=== PATIENT | female | born 1990 | race American Indian/Alaskan Native ===

== ENCOUNTER 2016-12-16 08:20 | Emergency (ER) | payer MEDICAID ==
[2016-12-16] MEDS ORDERED: ZOFRAN ODT PO ONE (08:39)
[2016-12-16 09:00] LABS: Bacteria,Urine 1+ /HPF (Negative); Bilirubin,Urine NEG (Negative); Blood,Urine NEG (Negative); Ketones,Urine 80 mg/dL (Negative); Leukocyte Esterase,Urine SM (Negative); Mucus,Urine 3+ /HPF; Nitrite,Urine NEG (Negative); Urobilinogen,Urine < 2.0 mg/dL (<2.0)
[2016-12-16] MEDS ORDERED: LACTATED RINGERS 1,000 ML IV ONE (09:08)
--- NOTE | 2016-12-16 09:19 | Emergency Department Report ---
ED N/V/D HPI - General Chief complaint: Nausea/Vomiting/Diarrhea Stated complaint: NAUSEA Time Seen by Provider: 12/16/16 08:37 Source: patient Mode of arrival: Ambulatory Limitations: No Limitations - History of Present Illness Initial comments: This is a 26 year old female that presents with n/v x4 days. Patient stated is 16 weeks . Last menstrual 08/25/16. Patient stated last OB appointment was 1 month ago with no sono. Stated normal OB appointment with concerns from the provider. Patient presents today with n/v after eating and drinking anything, unable to keep anything down. Denies any abdominal pain, headache, vaginal bleeding. Patient stated last time she felt the baby move was last Tuesday. Patient does not know her blood type. She is currently taking vitamins. Patient stated that she will follow-up with her OB doctor. Gregoria MACDONALD complaint: nausea, vomiting Onset/Timin (days) -: Gradual Description of Vomiting: food contents (unable to keep anything by mouth), watery Associated Abdominal Pain: No (patient denies any abdominal pain or discomfort) Radiation: none Worsens with: eating Associated Symptoms: denies other symptoms - Related Data Previous Rx's Medication Instructions Recorded Last Taken Type Promethazine [Phenergan TAB] 25 mg PO Q6HR PRN #15 tab 12/16/16 Unknown Rx Allergies Allergy/AdvReac Type Severity Reaction Status Date / Time No Known Allergies Allergy Unverified 08/29/13 12:26 ED Review of Systems ROS: Stated complaint: NAUSEA Other details as noted in HPI Comment: All other systems reviewed and negative Constitutional: denies: chills, fever Eyes: denies: eye pain, eye discharge, vision change ENT: denies: ear pain, throat pain Respiratory: denies: cough, shortness of breath, wheezing Cardiovascular: denies: chest pain, palpitations Endocrine: no symptoms reported Gastrointestinal: as per HPI, nausea, vomiting. denies: abdominal pain, diarrhea, hematemesis Genitourinary: denies: urgency, dysuria, discharge Musculoskeletal: denies: back pain, joint swelling, arthralgia Skin: denies: rash, lesions Neurological: denies: headache, weakness, paresthesias Psychiatric: denies: anxiety, depression Hematological/Lymphatic: denies: easy bleeding, easy bruising ED Past Medical Hx - Past Medical History Previous Medical History?: No - Surgical History Past Surgical History?: Yes - Social History Smoking Status: Former Smoker Substance Use Type: None - Medications Home Medications: Home Medications Medication Instructions Recorded Confirmed Last Taken Type Promethazine [Phenergan TAB] 25 mg PO Q6HR PRN #15 tab 12/16/16 Unknown Rx ED Physical Exam - General Limitations: No Limitations General appearance: alert, in no apparent distress - Head Head exam: Present: atraumatic, normocephalic - Eye Eye exam: Present: normal appearance - ENT ENT exam: Present: mucous membranes moist - Neck Neck exam: Present: normal inspection - Respiratory Respiratory exam: Present: normal lung sounds bilaterally. Absent: respiratory distress - Cardiovascular Cardiovascular Exam: Present: regular rate, normal rhythm. Absent: systolic murmur, diastolic murmur, rubs, gallop - GI/Abdominal GI/Abdominal exam: Present: soft, normal bowel sounds - Extremities Exam Extremities exam: Present: normal inspection - Back Exam Back exam: Present: normal inspection - Neurological Exam Neurological exam: Present: alert, oriented X3 - Psychiatric Psychiatric exam: Present: normal affect, normal mood - Skin Skin exam: Present: warm, dry, intact, normal color. Absent: rash ED Course Vital Signs 12/16/16 12/16/16 08:24 12:51 Temperature 98.2 F 98 F Pulse Rate 70 74 Respiratory 24 18 Rate Blood Pressure 120/75 Blood Pressure 122/72 [Right] O2 Sat by Pulse 99 99 Oximetry Labs 12/16/16 08:45 Urine Color Yellow Urine Turbidity Slightly-cloudy Urine pH 5.0 Ur Specific Dent 1.028 Urine Protein 30 mg/dl Urine Glucose (UA) Neg Urine Ketones 80 Urine Blood Neg Urine Nitrite Neg Urine Bilirubin Neg Urine Urobilinogen < 2.0 Ur Leukocyte Esterase Sm Urine WBC (Auto) 5.0 Urine RBC (Auto) 4.0 U Epithel Cells (Auto) 13.0 Urine Bacteria (Auto) 1+ Urine Mucus 3+ Vital Signs 12/16/16 08:24 Temperature 98.2 F Pulse Rate 70 Respiratory 24 Rate Blood Pressure 120/75 O2 Sat by Pulse 99 Oximetry ED Medical Decision Making - Lab Data Result diagrams: 12/16/16 09:14 12/16/16 09:14 Lab Results 12/16/16 12/16/16 12/16/16 Range/Units 08:45 09:14 09:14 WBC 6.1 (4.5-11.0) K/mm3 RBC 4.51 (3.65-5.03) M/mm3 Hgb 12.5 (10.1-14.3) gm/dl Hct 37.9 (30.3-42.9) % MCV 84 (79-97) fl MCH 28 (28-32) pg MCHC 33 (30-34) % RDW 16.7 H (13.2-15.2) % Plt Count 146 (140-440) K/mm3 Add Manual Diff Complete Total Counted 100 Seg Neuts % (Manual) 82.0 H (40.0-70.0) % Band Neutrophils % 0 % Lymphocytes % (Manual) 12.0 L (13.4-35.0) % Reactive Lymphs % (Man) 0 % Monocytes % (Manual) 4.0 (0.0-7.3) % Eosinophils % (Manual) 1.0 (0.0-4.3) % Basophils % (Manual) 1.0 (0.0-1.8) % Metamyelocytes % 0 % Myelocytes % 0 % Promyelocytes % 0 % Blast Cells % 0 % Nucleated RBC % Not Reportable Seg Neutrophils # Man 5.0 (1.8-7.7) K/mm3 Band Neutrophils # 0.0 K/mm3 Lymphocytes # (Manual) 0.7 L (1.2-5.4) K/mm3 Abs React Lymphs (Man) 0.0 K/mm3 Monocytes # (Manual) 0.2 (0.0-0.8) K/mm3 Eosinophils # (Manual) 0.1 (0.0-0.4) K/mm3 Basophils # (Manual) 0.1 (0.0-0.1) K/mm3 Metamyelocytes # 0.0 K/mm3 Myelocytes # 0.0 K/mm3 Promyelocytes # 0.0 K/mm3 Blast Cells # 0.0 K/mm3 WBC Morphology Not Reportable Hypersegmented Neuts Not Reportable Hyposegmented Neuts Not Reportable Hypogranular Neuts Not Reportable Smudge Cells Not Reportable Toxic Granulation Not Reportable Toxic Vacuolation Not Reportable Dohle Bodies Not Reportable Pelger-Huet Anomaly Not Reportable García Rods Not Reportable Platelet Estimate Cons Clumped Platelets Not Reportable Plt Clumps, EDTA Not Reportable Large Platelets Not Reportable Giant Platelets Not Reportable Platelet Satelliting Not Reportable Plt Morphology Comment Not Reportable RBC Morphology Not Reportable Dimorphic RBCs Not Reportable Polychromasia Not Reportable Hypochromasia Not Reportable Poikilocytosis Not Reportable Anisocytosis 1+ Microcytosis Not Reportable Macrocytosis Not Reportable Spherocytes Not Reportable Pappenheimer Bodies Not Reportable Sickle Cells Not Reportable Target Cells Not Reportable Tear Drop Cells Rare Ovalocytes Few Helmet Cells Not Reportable Stallings-Baidland Bodies Not Reportable [place] Rings Not Reportable Hoa Cells Not Reportable Bite Cells Not Reportable Crenated Cell Not Reportable Elliptocytes Not Reportable Acanthocytes (Spur) Not Reportable Rouleaux Not Reportable Hemoglobin C Crystals Not Reportable Schistocytes Not Reportable Malaria parasites Not Reportable Moshe Bodies Not Reportable Hem Pathologist Commnt No Sodium (137-145) mmol/L Potassium (3.6-5.0) mmol/L Chloride (98-107) mmol/L Carbon Dioxide (22-30) mmol/L Anion Gap mmol/L BUN (7-17) mg/dL Creatinine (0.7-1.2) mg/dL Estimated GFR ml/min BUN/Creatinine Ratio % Glucose (65-100) mg/dL Calcium (8.4-10.2) mg/dL Magnesium (1.7-2.3) mg/dL Total Bilirubin (0.1-1.2) mg/dL Direct Bilirubin (0-0.2) mg/dL AST (5-40) units/L ALT (7-56) units/L Alkaline Phosphatase (35-129) units/L Total Protein (6.3-8.2) g/dL Albumin (3.9-5) g/dL Albumin/Globulin Ratio % Amylase (27-131) units/L Lipase (13-60) units/L HCG, Quant (0-4) mIU/mL Urine Color Yellow (Yellow) Urine Turbidity Slightly-cloudy (Clear) Urine pH 5.0 (5.0-7.0) Ur Specific Dent 1.028 (1.003-1.030) Urine Protein 30 mg/dl (Negative) mg/dL Urine Glucose (UA) Neg (Negative) mg/dL Urine Ketones 80 (Negative) mg/dL Urine Blood Neg (Negative) Urine Nitrite Neg (Negative) Urine Bilirubin Neg (Negative) Urine Urobilinogen < 2.0 (<2.0) mg/dL Ur Leukocyte Esterase Sm (Negative) Urine WBC (Auto) 5.0 (0.0-6.0) /HPF Urine RBC (Auto) 4.0 (0.0-6.0) /HPF U Epithel Cells (Auto) 13.0 (0-13.0) /HPF Urine Bacteria (Auto) 1+ (Negative) /HPF Urine Mucus 3+ /HPF Blood Type O POSITIVE Antibody Screen TNR ODELL Antibody Screen Negative Ord Rhogam Gestat Weeks Rh pos WEEKS 12/16/16 12/16/16 12/16/16 Range/Units 09:14 09:14 09:14 WBC (4.5-11.0) K/mm3 RBC (3.65-5.03) M/mm3 Hgb (10.1-14.3) gm/dl Hct (30.3-42.9) % MCV (79-97) fl MCH (28-32) pg MCHC (30-34) % RDW (13.2-15.2) % Plt Count (140-440) K/mm3 Add Manual Diff Total Counted Seg Neuts % (Manual) (40.0-70.0) % Band Neutrophils % % Lymphocytes % (Manual) (13.4-35.0) % Reactive Lymphs % (Man) % Monocytes % (Manual) (0.0-7.3) % Eosinophils % (Manual) (0.0-4.3) % Basophils % (Manual) (0.0-1.8) % Metamyelocytes % % Myelocytes % % Promyelocytes % % Blast Cells % % Nucleated RBC % Seg Neutrophils # Man (1.8-7.7) K/mm3 Band Neutrophils # K/mm3 Lymphocytes # (Manual) (1.2-5.4) K/mm3 Abs React Lymphs (Man) K/mm3 Monocytes # (Manual) (0.0-0.8) K/mm3 Eosinophils # (Manual) (0.0-0.4) K/mm3 Basophils # (Manual) (0.0-0.1) K/mm3 Metamyelocytes # K/mm3 Myelocytes # K/mm3 Promyelocytes # K/mm3 Blast Cells # K/mm3 WBC Morphology Hypersegmented Neuts Hyposegmented Neuts Hypogranular Neuts Smudge Cells Toxic Granulation Toxic Vacuolation Dohle Bodies Pelger-Huet Anomaly García Rods Platelet Estimate Clumped Platelets Plt Clumps, EDTA Large Platelets Giant Platelets Platelet Satelliting Plt Morphology Comment RBC Morphology Dimorphic RBCs Polychromasia Hypochromasia Poikilocytosis Anisocytosis Microcytosis Macrocytosis Spherocytes Pappenheimer Bodies Sickle Cells Target Cells Tear Drop Cells Ovalocytes Helmet Cells Stallings-Baidland Bodies [place] Rings Hoa Cells Bite Cells Crenated Cell Elliptocytes Acanthocytes (Spur) Rouleaux Hemoglobin C Crystals Schistocytes Malaria parasites Moshe Bodies Hem Pathologist Commnt Sodium 131 L (137-145) mmol/L Potassium 3.5 L (3.6-5.0) mmol/L Chloride 96.1 L (98-107) mmol/L Carbon Dioxide 21 L (22-30) mmol/L Anion Gap 17 mmol/L BUN 7 (7-17) mg/dL Creatinine 0.4 L (0.7-1.2) mg/dL Estimated GFR > 60 ml/min BUN/Creatinine Ratio 17.50 % Glucose 73 (65-100) mg/dL Calcium 9.3 (8.4-10.2) mg/dL Magnesium 1.6 L (1.7-2.3) mg/dL Total Bilirubin 0.3 (0.1-1.2) mg/dL Direct Bilirubin < 0.2 (0-0.2) mg/dL AST 19 (5-40) units/L ALT 10 (7-56) units/L Alkaline Phosphatase 51 (35-129) units/L Total Protein 7.7 (6.3-8.2) g/dL Albumin 4.0 (3.9-5) g/dL Albumin/Globulin Ratio 1.1 % Amylase 118 (27-131) units/L Lipase 22 (13-60) units/L HCG, Quant (0-4) mIU/mL Urine Color (Yellow) Urine Turbidity (Clear) Urine pH (5.0-7.0) Ur Specific Dent (1.003-1.030) Urine Protein (Negative) mg/dL Urine Glucose (UA) (Negative) mg/dL Urine Ketones (Negative) mg/dL Urine Blood (Negative) Urine Nitrite (Negative) Urine Bilirubin (Negative) Urine Urobilinogen (<2.0) mg/dL Ur Leukocyte Esterase (Negative) Urine WBC (Auto) (0.0-6.0) /HPF Urine RBC (Auto) (0.0-6.0) /HPF U Epithel Cells (Auto) (0-13.0) /HPF Urine Bacteria (Auto) (Negative) /HPF Urine Mucus /HPF Blood Type Antibody Screen ODELL Antibody Screen Ord Rhogam Gestat Weeks WEEKS 12/16/16 Range/Units 09:14 WBC (4.5-11.0) K/mm3 RBC (3.65-5.03) M/mm3 Hgb (10.1-14.3) gm/dl Hct (30.3-42.9) % MCV (79-97) fl MCH (28-32) pg MCHC (30-34) % RDW (13.2-15.2) % Plt Count (140-440) K/mm3 Add Manual Diff Total Counted Seg Neuts % (Manual) (40.0-70.0) % Band Neutrophils % % Lymphocytes % (Manual) (13.4-35.0) % Reactive Lymphs % (Man) % Monocytes % (Manual) (0.0-7.3) % Eosinophils % (Manual) (0.0-4.3) % Basophils % (Manual) (0.0-1.8) % Metamyelocytes % % Myelocytes % % Promyelocytes % % Blast Cells % % Nucleated RBC % Seg Neutrophils # Man (1.8-7.7) K/mm3 Band Neutrophils # K/mm3 Lymphocytes # (Manual) (1.2-5.4) K/mm3 Abs React Lymphs (Man) K/mm3 Monocytes # (Manual) (0.0-0.8) K/mm3 Eosinophils # (Manual) (0.0-0.4) K/mm3 Basophils # (Manual) (0.0-0.1) K/mm3 Metamyelocytes # K/mm3 Myelocytes # K/mm3 Promyelocytes # K/mm3 Blast Cells # K/mm3 WBC Morphology Hypersegmented Neuts Hyposegmented Neuts Hypogranular Neuts Smudge Cells Toxic Granulation Toxic Vacuolation Dohle Bodies Pelger-Huet Anomaly García Rods Platelet Estimate Clumped Platelets Plt Clumps, EDTA Large Platelets Giant Platelets Platelet Satelliting Plt Morphology Comment RBC Morphology Dimorphic RBCs Polychromasia Hypochromasia Poikilocytosis Anisocytosis Microcytosis Macrocytosis Spherocytes Pappenheimer Bodies Sickle Cells Target Cells Tear Drop Cells Ovalocytes Helmet Cells Stallings-Baidland Bodies [place] Rings Hoa Cells Bite Cells Crenated Cell Elliptocytes Acanthocytes (Spur) Rouleaux Hemoglobin C Crystals Schistocytes Malaria parasites Moshe Bodies Hem Pathologist Commnt Sodium (137-145) mmol/L Potassium (3.6-5.0) mmol/L Chloride (98-107) mmol/L Carbon Dioxide (22-30) mmol/L Anion Gap mmol/L BUN (7-17) mg/dL Creatinine (0.7-1.2) mg/dL Estimated GFR ml/min BUN/Creatinine Ratio % Glucose (65-100) mg/dL Calcium (8.4-10.2) mg/dL Magnesium (1.7-2.3) mg/dL Total Bilirubin (0.1-1.2) mg/dL Direct Bilirubin (0-0.2) mg/dL AST (5-40) units/L ALT (7-56) units/L Alkaline Phosphatase (35-129) units/L Total Protein (6.3-8.2) g/dL Albumin (3.9-5) g/dL Albumin/Globulin Ratio % Amylase (27-131) units/L Lipase (13-60) units/L HCG, Quant 29746 H (0-4) mIU/mL Urine Color (Yellow) Urine Turbidity (Clear) Urine pH (5.0-7.0) Ur Specific Dent (1.003-1.030) Urine Protein (Negative) mg/dL Urine Glucose (UA) (Negative) mg/dL Urine Ketones (Negative) mg/dL Urine Blood (Negative) Urine Nitrite (Negative) Urine Bilirubin (Negative) Urine Urobilinogen (<2.0) mg/dL Ur Leukocyte Esterase (Negative) Urine WBC (Auto) (0.0-6.0) /HPF Urine RBC (Auto) (0.0-6.0) /HPF U Epithel Cells (Auto) (0-13.0) /HPF Urine Bacteria (Auto) (Negative) /HPF Urine Mucus /HPF Blood Type Antibody Screen ODELL Antibody Screen Ord Rhogam Gestat Weeks WEEKS Ultrasound report: Single, viable intrauterine gestation with ultrasound estimated age of 16 weeks and 2 days and EDC of 05/31/2017, currently in breech lie with details, as above. - Medical Decision Making ED course: Hyperemesis gravidarum 1-was prescribed Zofran 8 mg by mouth for nausea and vomiting. Patient stated tolerated and is doing better. 2-I order LR a regular IV bolus. 3-Patient will follow-up with OB in 1-2 days 4-Printed information on hyperemesis gravidarum and gave to patient 5- patient tolerated apple juice by mouth well 6-patient stated is doing better. Denies any nausea or vomiting. 7-Dr. Bang aware of the patient and agreed to discharge. 8. Patient prescribed Phenergan. 9. Normal ultrasound report. Critical care attestation.: If time is entered above; I have spent that time in minutes in the direct care of this critically ill patient, excluding procedure time. ED Disposition Clinical Impression: Hyperemesis gravidarum, Nausea & vomiting Disposition: DISCHARGED TO HOME OR SELFCARE Is pt being admited?: No Does the pt Need Aspirin: No Condition: Stable Instructions: Morning Sickness (ED), (ED), Hyperemesis Gravidarum (ED ), Acute Nausea and Vomiting (ED) Prescriptions: Promethazine [Phenergan TAB] 25 mg PO Q6HR PRN #15 tab PRN Reason: Nausea Referrals: PRIMARY CAREMD [Primary Care Provider] - 3-5 Days [facility] [Outside] - 3-[address] [facility] [place] [Outside] - 3-5 Days MYA WAKEFIELD MD [Staff Physician] - 3-5 Days Forms: Work/School Release Form(ED)
[2016-12-16 09:44] LABS: Hematocrit 37.9 % (30.3-42.9); Hemoglobin 12.5 gm/dl (10.1-14.3); Mean Corpuscular HGB Conc 33 % (30-34); Mean Corpuscular Hemoglobin 28 pg (28-32); Mean Corpuscular Volume 84 fl (79-97); Red Blood Count 4.51 M/mm3 (3.65-5.03); Red Cell Distribution Width 16.7 % (13.2-15.2); White Blood Count 6.1 K/mm3 (4.5-11.0)
[2016-12-16 10:01] LABS: Amylase 118 units/L (27-131); Lipase 22 units/L (13-60)
[2016-12-16 10:03] LABS: Alanine Aminotransferase 10 units/L (7-56); Albumin/Globulin Ratio 1.1 %; Alkaline Phosphatase 51 units/L (35-129); Anion Gap 17 mmol/L; Bilirubin,Total 0.3 mg/dL (0.1-1.2); Blood Urea Nitrogen 7 mg/dL (7-17); Calcium 9.3 mg/dL (8.4-10.2); Carbon Dioxide 21 mmol/L (22-30); Chloride 96.1 mmol/L (98-107); Glucose 73 mg/dL (65-100); Potassium 3.5 mmol/L (3.6-5.0); Sodium 131 mmol/L (137-145); Total Protein 7.7 g/dL (6.3-8.2)
[2016-12-16 10:05] LABS: Bilirubin,Direct < 0.2 mg/dL (0-0.2)
[2016-12-16 10:20] LABS: Blastocytes % (Manual) 0 %
[2016-12-16 10:21] LABS: Anisocytosis 1+
[2016-12-16 10:22] LABS: Diff Status Complete; Ovalocytes Few; Platelet Count 146 K/mm3 (140-440); Platelet Estimate Cons; Tear Drop Cells Rare
--- NOTE | 2016-12-16 11:03 | Ultrasound Report ---
OB ULTRASOUND GREATER THAN 14 WEEKS INDICATION: Nausea, vomiting for 2 days. Abdominal pain. . COMPARISON: None similar during this gestation. TECHNIQUE: Transabdominal grayscale ultrasound with Doppler interrogation. Gestation: Lopez Position: Breech Amniotic Fluid: WNL (< 24 weeks, subjective) Placenta: Fundal - Right Lateral Placental Grade: 0 Heart Rate: 145 BPM Cervical length: 3.9 cm (Normal > 3 cm) It is too early for a anatomical survey BPD: 3.3 cm = 16 w 3 d HC: 13 cm = 16 w 4 d AC: 10.2 cm = 16 w 1 d FL: 2.1 cm = 16 w 1 d HC/AC Ratio: 1.28 Cephalic Index: 83.6 Estimated Weight: 149 grams LMP: 08/25/2017 Clinical age = 16 w 1 d EDC: 06/01/2017 US Gest. Age = 16 w 2 d EDC: 05/31/2017 CONCLUSION: Single, viable intrauterine gestation with ultrasound estimated age of 16 weeks and 2 days and EDC of 05/31/2017, currently in breech lie with details, as above. Thank you for the opportunity to participate in this patient's care.
[2016-12-16 12:53] VITALS: BP 122/72
== END 2016-12-16 12:51 | disposition home or self-care (01) ==
LOC: ED 08:20
DX: O21.0 Mild hyperemesis gravidarum (principal); O02.81 Inappropriate change in quantitative human chorionic gonadotropin (hCG) in early pregnancy; Z3A.16 16 weeks gestation of pregnancy; Z87.891 Personal history of nicotine dependence
CPT/HCPCS: 36415; 76805; 80048; 80074; 81001; 82010; 82150; 83690; 83735; 84702; 85007; 85025; 86850; 86900; 86901; 87086; 96360; 99284; J7120; Q0162

== ENCOUNTER 2017-06-01 04:11 | Inpatient (IN) | payer MEDICAID ==
[2017-06-01] MEDS ORDERED: BRETHINE SUB-Q PRN (04:46)
[2017-06-01] MEDS ORDERED: POLYCILLIN/NS 2 GM/100 ML 2 GM/100 ML BAG IV ONE (04:46)
[2017-06-01] MEDS ORDERED: XYLOCAINE 2% INFILTRATI ONE (04:46)
[2017-06-01] MEDS ORDERED: SUBLIMAZE IV PRN (04:46)
[2017-06-01] MEDS ORDERED: MINERAL OIL PO PRN (04:46)
[2017-06-01] MEDS ORDERED: BRETHINE IVP PRN (04:46)
[2017-06-01] MEDS ORDERED: ePHEDrine SULFATE IV PRN (04:46)
[2017-06-01] MEDS ORDERED: LACTATED RINGERS 1,000 ML ONE (04:49)
[2017-06-01 04:59] LABS: Urine Drugs of Abuse Note Disclamer
[2017-06-01] MEDS ORDERED: PITOCin/NS 20 UNIT/1000ML DRIP 20 UNITS/1,000 ML BAG IV SCH (05:00)
[2017-06-01] MEDS ORDERED: LACTATED RINGERS 1,000 ML IV SCH (05:00)
[2017-06-01 05:12] LABS: Hematocrit 35.3 % (30.3-42.9); Hemoglobin 11.9 gm/dl (10.1-14.3); Mean Corpuscular HGB Conc 34 % (30-34); Mean Corpuscular Hemoglobin 30 pg (28-32); Mean Corpuscular Volume 90 fl (79-97); Platelet Count 139 K/mm3 (140-440); Red Blood Count 3.93 M/mm3 (3.65-5.03); Red Cell Distribution Width 13.6 % (13.2-15.2); White Blood Count 8.2 K/mm3 (4.5-11.0)
[2017-06-01 06:08] LABS: HIV-1 Antigen p24 Non React (Non React); HIVR-1/2 Ab Non React (Non React)
--- NOTE | 2017-06-01 06:42 | History and Physical Report ---
History of Present Illness Date of examination: 06/01/17 Date of admission: 06/01/17 04:29 Chief complaint: contractions in active labor History of present illness: This is a 26 yo at 40 weeks came in with care in another facility noted to be 5cm. Chart unavailable Past History Past Medical History: no pertinent history Past Surgical History: tonsillectomy [employer] History: chlamydia, herpes, trichomonas Family/Genetic History: diabetes, hypertension Social history: single, smoking. denies: alcohol abuse, prescription drug abuse - Obstetrical History Expected Date of Delivery: 06/01/17 Actual Gestation: 40 Week(s) 0 Day(s) : 4 Para: 1 Hx # Term Pregnancies: 1 Number of Pregnancies: 0 Spontaneous Abortions: 1 Induced : 1 Number of Living Children: 1 Medications and Allergies Allergies Allergy/AdvReac Type Severity Reaction Status Date / Time No Known Allergies Allergy Unverified 08/29/13 12:26 Home Medications Medication Instructions Recorded Confirmed Last Taken Type Promethazine [Phenergan TAB] 25 mg PO Q6HR PRN #15 tab 12/16/16 Unknown Rx Active Meds: Active Medications Fentanyl (Sublimaze) 100 mcg IV Q2H PRN PRN Reason: Labor Pain Last Admin: 06/01/17 05:17 Dose: 100 mcg Lactated Ringer's (Lactated Ringers) 1,000 mls @ 125 mls/hr IV DIRECT VALE Last Admin: 06/01/17 05:17 Dose: 125 mls/hr Oxytocin/Sodium Chloride (Pitocin/Ns 20 Unit/1000ml Drip) 20 units in 1,000 mls @ 125 mls/hr IV DIRECT VALE Mineral Oil (Mineral Oil) 30 ml PO QHS PRN PRN Reason: Constipation Review of Systems All systems: negative Genitourinary: contractions - Vital Signs Vital signs: Vital Signs Temp Pulse Resp BP 97.2 F L 93 H 18 139/82 06/01/17 04:24 06/01/17 04:24 06/01/17 04:24 06/01/17 04:24 Temp Pulse Resp BP Pulse Ox 98.2 F 79 18 125/86 100 06/01/17 04:58 06/01/17 06:23 06/01/17 04:24 06/01/17 05:54 06/01/17 06:23 - Physical Exam Breasts: Positive: normal Cardiovascular: Regular rate, Normal S1 Lungs: Positive: Clear to auscultation, Normal air movement Abdomen: Positive: normal appearance, soft, normal bowel sounds. Negative: distention, tenderness Genitourinary (Female): Positive: normal external genitalia, normal perenium Vagina: Positive: normal moisture Uterus: Positive: normal size, normal contour Anus/Rectum: Positive: normal perianal skin, heme negative Extremities: Positive: normal Deep Tendon Reflex Grade: Normal +2 - Obstetrical FHR: category 1 Uterine Contraction Monitor Mode: External Cervical Dilatation: 5 Cervical Effacement Percentage: 90 station: -1 Uterine Contraction Pattern: Regular Uterine Tone Measurement Phase: Contraction Uterine Contraction Intensity: Strong/Firm Results Result Diagrams: 06/01/17 04:35 Abnormal lab results 06/01/17 Range/Units 04:35 Plt Count 139 L (140-440) K/mm3 All other labs normal. Assessment and Plan A/P IUP 40 weeks active labor acquire records all new labs dose of amp for GBS unknown expect vaginal delivery
--- NOTE | 2017-06-01 06:57 | Procedure Note ---
OB Delivery Note - Delivery Date of Delivery: 06/01/17 Surgeon: MYA WAKEFIELD Estimated blood loss: 200cc - Vaginal Delivery presentation: vertex Delivery position: OA Intrapartum events: none Delivery induction: none Delivery monitor: external FHT, external uterine Route of delivery: Delivery placenta: spontaneous Episiotomy: none Delivery laceration: vaginal side wall (hemostatic not bleeding ) Delivery comments: Patient was noted to be c/c/ and +2 and commenced to pushing a viable male infant in oa presentation at 0621 . Viable male infant Apgars 8 and9. Weight 6 pounds 4 ounces . The cord was clamped and cut and placed baby on mother chest. Cord blood was sent. The placenta delivered an intact placenta with three vessel cord at 0632 . Survey of perineum identified a left side wall hemostatic and not bleeding. EBL 200 cc. Patient tolerated procedure well.
[2017-06-01] MEDS ORDERED: PHENERGAN PO PRN ×2 (07:04→08:30)
[2017-06-01] MEDS ORDERED: ZOFRAN IV PRN ×2 (07:04→08:30)
[2017-06-01] MEDS ORDERED: BENADRYL PO PRN ×2 (07:04→08:00)
[2017-06-01] MEDS ORDERED: MILK OF MAGNESIA PO PRN ×2 (07:04→22:00)
[2017-06-01] MEDS ORDERED: LANSINOH TP PRN ×2 (07:04→08:00)
[2017-06-01] MEDS ORDERED: TUCKS PAD TP PRN ×2 (07:04→08:00)
[2017-06-01] MEDS ORDERED: PHENERGAN PR PRN ×2 (07:04→08:30)
[2017-06-01] MEDS ORDERED: DULCOLAX PR PRN ×2 (07:04→10:00)
[2017-06-01] MEDS ORDERED: TYLENOL PO PRN ×2 (07:04→08:00)
[2017-06-01] MEDS ORDERED: SODIUM CHLORIDE FLUSH SYRINGE 10 ML IV NR (08:00)
[2017-06-01] MEDS: MOTRIN PO SCH ×2 (08:02→18:12)
[2017-06-01] MEDS ORDERED: PERCOCET 5/325 PO PRN (08:30)
[2017-06-01] MEDS ORDERED: TORADOL IV PRN (08:30)
[2017-06-01] MEDS ORDERED: SODIUM CHLORIDE FLUSH SYRINGE 10 ML IV PRN (08:30)
[2017-06-01] MEDS: NORCO 5/325 PO PRN ×3 (09:06→20:15)
[2017-06-01] MEDS ORDERED: COLACE PO SCH (10:00)
[2017-06-01] MEDS ORDERED: SENOKOT S PO SCH (10:00)
[2017-06-01] MEDS ORDERED: PRENATAL VITAMIN PO SCH (10:00)
[2017-06-01] MEDS ORDERED: MOTRIN PO SCH (12:00)
[2017-06-01 20:41] LABS: Hematocrit 33.3 % (30.3-42.9); Hemoglobin 11.1 gm/dl (10.1-14.3); Mean Corpuscular HGB Conc 33 % (30-34); Mean Corpuscular Hemoglobin 30 pg (28-32); Mean Corpuscular Volume 91 fl (79-97); Platelet Count 138 K/mm3 (140-440); Red Blood Count 3.66 M/mm3 (3.65-5.03); Red Cell Distribution Width 13.6 % (13.2-15.2); White Blood Count 10.4 K/mm3 (4.5-11.0)
[2017-06-02] MEDS: MOTRIN PO SCH ×2 (00:43→06:08)
[2017-06-02] MEDS ORDERED: BOOSTRIX IM ONE (06:00)
--- NOTE | 2017-06-02 08:37 | Progress Note ---
Assessment and Plan A: PPD#1 s/p P: Continue routine care. Discharge pt today. Subjective - Subjective Date of service: 06/02/17 Principal diagnosis: s/p at term, No care Interval history: Pt without complaints. She would like to go home Patient reports: appetite normal, voiding normally, pain well controlled, ambulating normally : doing well Objective - Vital Signs Latest vital signs: Vital Signs Temp Pulse Resp BP Pulse Ox 06/02/17 06:08 18 06/02/17 01:43 18 06/02/17 01:34 98.3 F 74 18 108/58 06/02/17 00:43 18 06/01/17 20:15 18 06/01/17 19:17 18 06/01/17 16:00 97.9 F 87 127/87 06/01/17 11:57 98.1 F 69 18 111/62 96 Intake and Output 06/01/17 06/02/17 06/02/17 22:59 06:59 14:59 Intake Total 1200 720 Output Total 800 Balance 400 720 Intake: Oral 960 Intake, Free Water 240 720 Output: Urine 800 Void 800 Other: Total, Intake Amount 960 Total, Output Amount 800 # Voids Void 1 - Exam Breasts: Present: deferred Cardiovascular: Present: Regular rate Lungs: Present: Clear to auscultation Abdomen: Present: soft Uterus: Present: fundal height at umbilicus Extremities: Present: normal - Labs Labs: Abnormal lab results 06/01/17 Range/Units 20:23 Plt Count 138 L (140-440) K/mm3
--- NOTE | 2017-06-02 08:38 | Discharge Summary ---
Providers - Providers Date of Admission: 06/01/17 04:29 Date of discharge: 06/02/17 Attending physician: MYA WAKEFIELD MD Primary care physician: LABOR AND DELIVERY NURSE Hospitalization Reason for admission: active labor Delivery: Procedure details: Please see delivery note. Episiotomy: none Laceration: vaginal side wall Incision: normal Other procedures: none complications: none Discharge diagnosis: IUP at term delivered [place] baby: male Hospital course: Pt was admitted in labor and went on to have a which she tolerated well. Her course was uncomplicated and she met discharge criteria on PPD# 1. Condition at discharge: Stable Disposition: DC-01 TO HOME OR SELFCARE - Discharge Diagnoses (1) Term of male Status: Acute Plan - Discharge Medications Prescriptions: Ibuprofen [Motrin] 600 mg PO Q8H PRN #30 tablet PRN Reason: Pain oxyCODONE /ACETAMINOPHEN [Percocet 5/325] 1 tab PO Q6HR PRN #30 tablet PRN Reason: Pain - Provider Discharge Summary Activity: routine, no sex for 6 weeks, no heavy lifting 4 weeks, no strenuous exercise Diet: routine Instructions: routine Additional instructions: [] Smoking cessation referral if applicable(refer to patient education folder for contact #) [] Refer to [facility]'s [facility] Booklet Call your doctor immediately for: * Fever > 100.5 * Heavy vaginal bleeding ( >1 pad per hour) * Severe persistent headache * Shortness of breath * Reddened, hot, painful area to leg or breast * Drainage or odor from incision. * Keep incision clean and dry at all times and follow doctor's instructions regarding bathing/showering Please schedule your son's circumcision before he is one month old. - Follow up plan Follow up: MYA WAKEFIELD MD [Staff Physician] - 06/29/17 ( exam )
[2017-06-02] MEDS ORDERED: M-M-R II VACCINE SUB-Q ONE (11:00)
[2017-06-02 15:27] VITALS: BP 110/50
== END 2017-06-02 13:30 | disposition home or self-care (01) | DRG 775 ==
LOC: TRG 04:11 → LD 04:29 → OB 08:46
PROVIDERS: ADMIT Obstetrics & Gynecology; ATTEND Obstetrics & Gynecology
PROC: 10E0XZZ Delivery of Products of Conception, External Approach (ICD-10-PCS; principal; 2017-06-01)
PROC: 3E0234Z Introduction of Serum, Toxoid and Vaccine into Muscle, Percutaneous Approach (ICD-10-PCS; 2017-06-01)
DX: O99.334 Smoking (tobacco) complicating childbirth (principal); F17.200 Nicotine dependence, unspecified, uncomplicated; Z3A.40 40 weeks gestation of pregnancy; Z37.0 Single live birth; Z23 Encounter for immunization; O71.4 Obstetric high vaginal laceration alone; Z83.3 Family history of diabetes mellitus; Z82.49 Family history of ischemic heart disease and other diseases of the circulatory system
CPT/HCPCS: 36415; 80307; 85027; 86592; 86706; 86762; 86803; 86850; 86900; 86901; 87806; 90471; 90715; 99211; A6250; G0463; J0290; J2590; J7120

== ENCOUNTER 2018-02-16 15:29 | Outpatient (CLI) | payer SELFPAY ==
[2018-02-16 16:38] LABS: Bacteria,Urine 1+ /HPF (Negative); Bilirubin,Urine NEG (Negative); Blood,Urine NEG (Negative); Color,Urine Yellow (Yellow); Mucus,Urine 3+ /HPF; Urobilinogen,Urine < 2.0 mg/dL (<2.0)
[2018-02-16 18:31] VITALS: BP 92/52
[2018-02-16 23:31] LABS: Amphetamine Screen,Urine PRESUMPTIVE NEGATIVE; Benzodiazepines Screen,Urine PRESUMPTIVE NEGATIVE; Cocaine Screen,Urine PRESUMPTIVE NEGATIVE; Methadone Screen,Urine PRESUMPTIVE NEGATIVE; Opiate Screen,Urine PRESUMPTIVE NEGATIVE
[2018-02-16 23:48] LABS: Cannabinoid Screen,Urine PRESUMPTIVE POSITIVE
== END 2018-02-16 17:40 | disposition home or self-care (01) ==
LOC: TRG 15:29
PROVIDERS: ATTEND Obstetrics & Gynecology
DX: O47.02 False labor before 37 completed weeks of gestation, second trimester (principal); O99.332 Smoking (tobacco) complicating pregnancy, second trimester; F17.210 Nicotine dependence, cigarettes, uncomplicated; Z3A.23 23 weeks gestation of pregnancy; Z79.899 Other long term (current) drug therapy
CPT/HCPCS: 59025; 80307; 81001

== ENCOUNTER 2018-03-03 12:43 | Emergency (ER) | payer MEDICAID ==
[2018-03-03 13:09] VITALS: BP 104/65
== END 2018-03-03 16:00 ==
LOC: ED 12:43
DX: J11.1 Influenza due to unidentified influenza virus with other respiratory manifestations (principal); Z53.21 Procedure and treatment not carried out due to patient leaving prior to being seen by health care provider

== ENCOUNTER 2018-06-16 17:24 | Inpatient (IN) | payer MEDICAID ==
[2018-06-16] MEDS ORDERED: BENADRYL IV ONE (18:11)
[2018-06-16] MEDS ORDERED: TORADOL IV ONE (18:11)
[2018-06-16] MEDS ORDERED: REGLAN IV ONE (18:11)
--- NOTE | 2018-06-16 18:12 | Emergency Department Report ---
ED Headache HPI - General Chief Complaint: Headache Stated Complaint: HIGH BP/HEADACHE Time Seen by Provider: 06/16/18 17:55 Source: patient Exam Limitations: no limitations - History of Present Illness Initial Comments: 27-year-old female with a past medical history of seizures as a child presents to the hospital 10 days complaining of a headache for the past 3 days. Patient having a global headache and some pain to her neck as well. Pain is constant but slightly improved with ibuprofen. Patient denies nausea, vomiting, focal weakness, focal numbness, or leg edema. Patient states that the blood pressure was elevated 162/90 day BP monitor at home. She denies preeclampsia hypertension, or headache history. Patient is breast-feeding. Allergies/Adverse Reactions: Allergies No Known Allergies Allergy (Unverified 08/29/13 12:26) Home Medications: Ambulatory Orders Promethazine [Phenergan TAB] 25 mg PO Q6HR PRN #15 tab 12/16/16 Ibuprofen [Motrin] 600 mg PO Q8H PRN #30 tablet 06/01/17 oxyCODONE /ACETAMINOPHEN [Percocet 5/325] 1 tab PO Q6HR PRN #30 tablet 06/01/17 Ibuprofen [Motrin 800 MG tab] 800 mg PO Q8HR PRN #30 tablet 06/07/18 Lidocain2.5%/Prilocai2.5% [Emla] 5 gm TP ONCE PRN #1 tube 06/07/18 ED Review of Systems ROS: Stated complaint: HIGH BP/HEADACHE Other details as noted in HPI Comment: All other systems reviewed and negative ED Past Medical Hx - Past Medical History Hx Hypertension: No Hx Congestive Heart Failure: No Hx Diabetes: No Hx Deep Vein Thrombosis: No Hx Renal Disease: No Hx Sickle Cell Disease: No Hx Seizures: Yes (childhood 2-3yrs) Hx Asthma: No Hx COPD: No Hx HIV: No - Social History Smoking Status: Never Smoker Substance Use Type: None - Medications Home Medications: Home Medications Medication Instructions Recorded Confirmed Last Taken Type Promethazine [Phenergan TAB] 25 mg PO Q6HR PRN #15 tab 12/16/16 06/06/18 Unknown Rx Ibuprofen [Motrin] 600 mg PO Q8H PRN #30 tablet 06/01/17 06/06/18 Unknown Rx oxyCODONE /ACETAMINOPHEN [Percocet 1 tab PO Q6HR PRN #30 tablet 06/01/17 Unknown Rx 5/325] Ibuprofen [Motrin 800 MG tab] 800 mg PO Q8HR PRN #30 tablet 06/07/18 Unknown Rx Lidocain2.5%/Prilocai2.5% [Emla] 5 gm TP ONCE PRN #1 tube 06/07/18 Unknown Rx ED Physical Exam - General Limitations: No Limitations - Other Other exam information: General: No limitations, patient is alert in no acute distress Head exam: Atraumatic, normocephalic Eyes exam: Normal appearance, pupils equal reactive to light, extraocular movements intact ENT: Moist mucous membrane Neck exam: Normal inspection, full range of motion, no meningismus nontender Respiratory exam: Clear to auscultation bilateral, no wheezes, rales, crackles Cardiovascular: Normal rate and rhythm, normal heart sounds Abdomen: Soft, nondistended, and nontender, with normal bowel sounds, no rebound, or guarding Extremity: Full range of motion normal inspection no deformity Back: Normal Inspection, full range of motion, no tenderness Neurologic: Alert, oriented x3, cranial nerves intact, no motor or sensory deficit Psychiatric: normal affect, normal mood Skin: Warm, dry, intact ED Course Vital Signs 06/16/18 06/16/18 06/16/18 17:31 18:01 18:02 Temperature 98.6 F Pulse Rate 67 67 74 Respiratory 16 14 14 Rate Blood Pressure 143/96 132/94 Blood Pressure [Right] O2 Sat by Pulse 98 99 98 Oximetry 06/16/18 06/16/18 06/16/18 18:04 18:06 18:08 Temperature Pulse Rate 75 69 74 Respiratory 13 19 11 L Rate Blood Pressure 132/94 132/94 132/94 Blood Pressure [Right] O2 Sat by Pulse 100 99 98 Oximetry 06/16/18 06/16/18 06/16/18 18:10 18:12 18:14 Temperature Pulse Rate 74 67 90 Respiratory 11 L 14 13 Rate Blood Pressure 132/94 132/94 132/94 Blood Pressure [Right] O2 Sat by Pulse 99 99 98 Oximetry 06/16/18 06/16/18 06/16/18 18:16 18:18 18:20 Temperature Pulse Rate 73 68 71 Respiratory 18 17 14 Rate Blood Pressure 132/94 132/94 132/94 Blood Pressure [Right] O2 Sat by Pulse 98 99 99 Oximetry 06/16/18 06/16/18 06/16/18 18:22 18:24 18:25 Temperature Pulse Rate 67 82 90 Respiratory 14 15 15 Rate Blood Pressure 132/94 132/94 132/94 Blood Pressure [Right] O2 Sat by Pulse 99 99 Oximetry 06/16/18 06/16/18 19:15 21:01 Temperature Pulse Rate 84 Respiratory Rate Blood Pressure 132/94 Blood Pressure 142/91 [Right] O2 Sat by Pulse 100 Oximetry - Reevaluation(s) Reevaluation #1: 06/16/18 20:00 Parra improved after ED treatment - Consultations Consultation #1: 06/16/18 21:00 case d/w bingo floater Cindy (with Dr Fragoso). Discussed CT, labs, presentation and improvement with the ED treatment. Given the blood pressure is normal recommended follow-up in the office on Tuesday ED Medical Decision Making - Lab Data Result diagrams: 06/16/18 18:01 06/16/18 18:01 Lab Results 06/16/18 06/16/18 06/16/18 Range/Units 18:01 18:01 18:01 WBC 3.4 L (4.5-11.0) K/mm3 RBC 4.04 (3.65-5.03) M/mm3 Hgb 12.6 (10.1-14.3) gm/dl Hct 37.7 (30.3-42.9) % MCV 94 (79-97) fl MCH 31 (28-32) pg MCHC 34 (30-34) % RDW 12.7 L (13.2-15.2) % Plt Count 157 (140-440) K/mm3 Lymph % (Auto) 42.0 H (13.4-35.0) % Island % (Auto) 12.6 H (0.0-7.3) % Eos % (Auto) 3.7 (0.0-4.3) % Baso % (Auto) 1.2 (0.0-1.8) % Lymph # 1.4 (1.2-5.4) K/mm3 Island # 0.4 (0.0-0.8) K/mm3 Eos # 0.1 (0.0-0.4) K/mm3 Baso # 0.0 (0.0-0.1) K/mm3 Seg Neutrophils % 40.5 (40.0-70.0) % Seg Neutrophils # 1.4 L (1.8-7.7) K/mm3 Sodium 141 (137-145) mmol/L Potassium 2.9 L* (3.6-5.0) mmol/L Chloride 104.1 (98-107) mmol/L Carbon Dioxide 26 (22-30) mmol/L Anion Gap 14 mmol/L BUN 7 (7-17) mg/dL Creatinine 0.7 (0.7-1.2) mg/dL Estimated GFR > 60 ml/min BUN/Creatinine Ratio 10 % Glucose 107 H (65-100) mg/dL Uric Acid 5.1 (3.5-7.6) mg/dL Calcium 8.8 (8.4-10.2) mg/dL Magnesium 1.70 (1.7-2.3) mg/dL Total Bilirubin 0.20 (0.1-1.2) mg/dL AST 19 (5-40) units/L ALT 18 (7-56) units/L Alkaline Phosphatase 101 (35-129) units/L Total Protein 7.1 (6.3-8.2) g/dL Albumin 3.8 L (3.9-5) g/dL Albumin/Globulin Ratio 1.2 % Urine Color (Yellow) Urine Turbidity (Clear) Urine pH (5.0-7.0) Ur Specific [place] (1.003-1.030) Urine Protein (Negative) mg/dL Urine Glucose (UA) (Negative) mg/dL Urine Ketones (Negative) mg/dL Urine Blood (Negative) Urine Nitrite (Negative) Urine Bilirubin (Negative) Urine Urobilinogen (<2.0) mg/dL Ur Leukocyte Esterase (Negative) Urine WBC (Auto) (0.0-6.0) /HPF Urine RBC (Auto) (0.0-6.0) /HPF U Epithel Cells (Auto) (0-13.0) /HPF Urine Mucus /HPF 06/16/18 Range/Units 19:23 WBC (4.5-11.0) K/mm3 RBC (3.65-5.03) M/mm3 Hgb (10.1-14.3) gm/dl Hct (30.3-42.9) % MCV (79-97) fl MCH (28-32) pg MCHC (30-34) % RDW (13.2-15.2) % Plt Count (140-440) K/mm3 Lymph % (Auto) (13.4-35.0) % Island % (Auto) (0.0-7.3) % Eos % (Auto) (0.0-4.3) % Baso % (Auto) (0.0-1.8) % Lymph # (1.2-5.4) K/mm3 Island # (0.0-0.8) K/mm3 Eos # (0.0-0.4) K/mm3 Baso # (0.0-0.1) K/mm3 Seg Neutrophils % (40.0-70.0) % Seg Neutrophils # (1.8-7.7) K/mm3 Sodium (137-145) mmol/L Potassium (3.6-5.0) mmol/L Chloride (98-107) mmol/L Carbon Dioxide (22-30) mmol/L Anion Gap mmol/L BUN (7-17) mg/dL Creatinine (0.7-1.2) mg/dL Estimated GFR ml/min BUN/Creatinine Ratio % Glucose (65-100) mg/dL Uric Acid (3.5-7.6) mg/dL Calcium (8.4-10.2) mg/dL Magnesium (1.7-2.3) mg/dL Total Bilirubin (0.1-1.2) mg/dL AST (5-40) units/L ALT (7-56) units/L Alkaline Phosphatase (35-129) units/L Total Protein (6.3-8.2) g/dL Albumin (3.9-5) g/dL Albumin/Globulin Ratio % Urine Color Yellow (Yellow) Urine Turbidity Slightly-cloudy (Clear) Urine pH 6.0 (5.0-7.0) Ur Specific [place] 1.014 (1.003-1.030) Urine Protein 30 mg/dl (Negative) mg/dL Urine Glucose (UA) Neg (Negative) mg/dL Urine Ketones Neg (Negative) mg/dL Urine Blood Lg (Negative) Urine Nitrite Neg (Negative) Urine Bilirubin Neg (Negative) Urine Urobilinogen < 2.0 (<2.0) mg/dL Ur Leukocyte Esterase Mod (Negative) Urine WBC (Auto) 16.0 H (0.0-6.0) /HPF Urine RBC (Auto) 57.0 (0.0-6.0) /HPF U Epithel Cells (Auto) 2.0 (0-13.0) /HPF Urine Mucus Few /HPF - Radiology Data Radiology results: report reviewed CT head: No acute finding - Medical Decision Making Headache CT head normal Concern for preeclampsia. Patient's blood pressure is slightly elevated in the ED but her baseline BP was in the low 100s only as high as 126 and now she is having systolic pressures in the 140s with headache even after ed treatment of pain. She does lack blurred vision, abdominal pain, and edema but she has protein in her urine. Headache improved with migraine cocktail of Toradol, Reglan, and Benadryl Patient received by mouth potassium for hypokalemia. Magnesium normal Case discussed with MANUFACTURING INTERN of a borderline presentation for preeclampsia and elevated low-pressure compared to . We'll admit to the hospital to mother baby for further treatment. Mag bolus ordered with MANUFACTURING INTERN to continue drip. Marcrobid given for uti - Differential Diagnosis migraine, intracranial hemorrhage/mass, preeclampsia Critical Care Time: No Critical care attestation.: If time is entered above; I have spent that time in minutes in the direct care of this critically ill patient, excluding procedure time. ED Disposition Clinical Impression: headache, UTI (urinary tract infection), Pre-eclampsia, Proteinuria , hypertension, Hypokalemia Disposition: OP ADMIT IP TO THIS HOSP Is pt being admited?: Yes Condition: Stable Time of Disposition: 21:25 (Dr Fragoso/urogynecology physician)
[2018-06-16 18:13] LABS: Basophils % (Auto) 1.2 % (0.0-1.8); Eosinophils # (Auto) 0.1 K/mm3 (0.0-0.4); Eosinophils % (Auto) 3.7 % (0.0-4.3); Hematocrit 37.7 % (30.3-42.9); Hemoglobin 12.6 gm/dl (10.1-14.3); Lymphocytes # (Auto) 1.4 K/mm3 (1.2-5.4); Mean Corpuscular HGB Conc 34 % (30-34); Mean Corpuscular Hemoglobin 31 pg (28-32); Mean Corpuscular Volume 94 fl (79-97); Monocytes # (Auto) 0.4 K/mm3 (0.0-0.8); Monocytes % (Auto) 12.6 % (0.0-7.3); Platelet Count 157 K/mm3 (140-440); Red Blood Count 4.04 M/mm3 (3.65-5.03); Red Cell Distribution Width 12.7 % (13.2-15.2)
[2018-06-16 18:28] LABS: Alanine Aminotransferase 18 units/L (7-56); Albumin 3.8 g/dL (3.9-5); BUN/Creatinine Ratio 10; Blood Urea Nitrogen 7 mg/dL (7-17); Calcium 8.8 mg/dL (8.4-10.2); Hemolysis Index 10
[2018-06-16] MEDS ORDERED: K-DUR PO ONE (18:31)
[2018-06-16 18:51] LABS: Uric Acid 5.1 mg/dL (3.5-7.6)
--- NOTE | 2018-06-16 19:03 | Cat Scan Report ---
FINAL REPORT EXAM: CT HEAD/BRAIN WO CON HISTORY: headache TECHNIQUE: 2.5 millimeter axial imaging from the skullbase to the vertex. Comparison: None FINDINGS: There is no evidence of an acute intracranial process, intracranial hemorrhage or mass effect. The ventricles are normal size. The visualized portions of the orbits the, paranasal and mastoid sinuses are unremarkable. The bony structures are unremarkable in appearance. IMPRESSION: 1. No evidence of an acute intracranial process, intracranial hemorrhage or mass effect. If there is a clinical suspicion of an acute intracranial process, MRI brain may be helpful.
[2018-06-16 20:24] LABS: Bilirubin,Urine NEG (Negative); Blood,Urine LG (Negative); Color,Urine Yellow (Yellow); Mucus,Urine FEW /HPF; Urobilinogen,Urine < 2.0 mg/dL (<2.0)
[2018-06-16] MEDS ORDERED: NACL 0.9% 1000 ML 1,000 ML IV ONE (20:38)
[2018-06-16] MEDS ORDERED: MACROBID PO ONE (20:51)
[2018-06-16] MEDS ORDERED: MAGNESIUM SULFATE 4GM/100ML 4 GM/100 ML BAG IV ONE (22:00)
--- NOTE | 2018-06-16 22:52 | History and Physical Report ---
History of Present Illness Date of examination: 06/16/18 Date of admission: 06/16/18 21:31 Chief complaint: ESPARZA x 3 days, pt is 10 days History of present illness: 27-year-old female with a past medical history of seizures as a child presents to the hospital 10 days complaining of a headache for the past 3 days. Patient having a global headache and some pain to her neck as well. Pain is constant but slightly improved with ibuprofen. Patient denies nausea, vomiting, focal weakness, focal numbness, or leg edema. Patient states that the blood pressure was elevated 162/90 day BP monitor at home. She denies preeclampsia hypertension, or headache history. Patient is breast-feeding. Past History : 5 Term Births: 2 Premature Births: 0 Living Children: 2 Para: 2 Mult. Births: 0 Prev : 0 Aborta: 2 Elect. Ab: 1 Spont. Ab: 1 # 1 Delivery date: 2008 Delivery type: EAB # 2 Delivery date: 09/2010 Delivery type: SAB Comments: MAB w/ cytotec # 3 Delivery date: 10/28/2011 Weeks Gestation: 39 Delivery type: Vaginal Anesthesia type: epidural Delivery location: [facility] Sex: male weight: 6.38 Comments: none # 4 Delivery date: 2016 Weeks Gestation: 40 labor: no Delivery type: Delivery location: [facility] Infant Sex: Male weight: 6#4oz Comments: none Past Medical History: Reviewed history from 06/02/2011 and no changes required: Anemia eliana niesha syndrome at 5 yo no abd pap hx hx CT Past Surgical History: Reviewed history from 09/30/2010 and no changes required: Tonsillectomy Past Medical History Social Hx: Patient is single no etoh, no illicit drug use, no tobacco use, + THC use Infection History Hx of STD: chlamydia HIV Risk Eval: no Hepatitis B Risk Eval: low risk Partner hx. of genital herpes: no Rash, Viral, or Febrile illness since last LMP? no Varicella/Chicken Pox Status: Immunized TB Risk: no Genetic History Congenital Heart Defect: Mom: no Dad: no [place] Disease: Mom: no Dad: no Thalassemia Mom: no Dad: no Neural Tube Defect Mom: no Dad: no Down's Syndrome Mom: no Dad: no Liborio-Sachs Mom: no Dad: no Sickle Cell Disease/Trait Mom: no Dad: no Hemophilia Mom: no Dad: no Muscular Dystrophy Mom: no Dad: no Cystic Fibrosis Mom: no Dad: no [place] Chorea Mom: no Dad: no Mental Retardation Mom: no Dad: no Fragile X Mom: no Dad: no Other Genetic/Chromosomal Disorder Mom: no Dad: no Child w/other defect Mom: no Dad: no Enviromental Exposures Xray Exposure: no Medication, drug, or alcohol use since LMP: no Chemical/Other Exposure: no Exposure to Cat Liter: no Hx of Parvovirus (Fifth Disease): no Occupational Exposure to Children: none NKDA Past History Past Medical History: other (see HPI) Past Surgical History: other (see HPI) SENIOR CONTROLLER History: other (see HPI) Family/Genetic History: other (see HPI) - Obstetrical History : 5 Medications and Allergies Allergies Allergy/AdvReac Type Severity Reaction Status Date / Time No Known Allergies Allergy Unverified 08/29/13 12:26 Home Medications Medication Instructions Recorded Confirmed Last Taken Type Promethazine [Phenergan TAB] 25 mg PO Q6HR PRN #15 tab 12/16/16 06/06/18 Unknown Rx Ibuprofen [Motrin] 600 mg PO Q8H PRN #30 tablet 06/01/17 06/06/18 Unknown Rx oxyCODONE /ACETAMINOPHEN [Percocet 1 tab PO Q6HR PRN #30 tablet 06/01/17 Unknown Rx 5/325] Ibuprofen [Motrin 800 MG tab] 800 mg PO Q8HR PRN #30 tablet 06/07/18 Unknown Rx Lidocain2.5%/Prilocai2.5% [Emla] 5 gm TP ONCE PRN #1 tube 06/07/18 Unknown Rx Active Meds: Active Medications Lactated Ringer's (Lactated Ringers) 1,000 mls @ 125 mls/hr IV DIRECT VALE Magnesium Sulfate (Magnesium Sulfate 40gm/1000ml) 40 gm in 1,000 mls @ 50 mls/ hr IV DIRECT VALE Review of Systems Neurological: headaches - Vital Signs Vital signs: Vital Signs Temp Pulse Resp BP Pulse Ox 98.6 F 67 16 143/96 98 06/16/18 17:31 06/16/18 17:31 06/16/18 17:31 06/16/18 17:31 06/16/18 17:31 Temp Pulse Resp BP Pulse Ox 98.6 F 84 16 145/78 98 06/16/18 17:31 06/16/18 21:01 06/16/18 22:31 06/16/18 22:31 06/16/18 22:31 - Physical Exam Breasts: Positive: normal Cardiovascular: Regular rate Lungs: Positive: Clear to auscultation, Normal air movement Abdomen: Positive: normal appearance, soft Results Result Diagrams: 06/16/18 18:01 06/16/18 18:01 Abnormal lab results 06/16/18 06/16/18 06/16/18 Range/Units 18:01 18:01 19:23 WBC 3.4 L (4.5-11.0) K/mm3 RDW 12.7 L (13.2-15.2) % Lymph % (Auto) 42.0 H (13.4-35.0) % Bryan % (Auto) 12.6 H (0.0-7.3) % Seg Neutrophils # 1.4 L (1.8-7.7) K/mm3 Potassium 2.9 L* (3.6-5.0) mmol/L Glucose 107 H (65-100) mg/dL Albumin 3.8 L (3.9-5) g/dL Urine WBC (Auto) 16.0 H (0.0-6.0) /HPF All other labs normal. Assessment and Plan 27y/o patient @ 10days post vaginal delivery seen in ED with c/o migraines x 3 days unrelieved with tylenol or motrin. b/p noted elevated at home and elevated baseline b/p's upon assessment in ED. UA has protein, several b/p's with DBP 90' s, other pre-e labs normal. Patient now reports ESPARZA is gone. She denies visual changes or epigastric pain. Plan to admit for mag therapy and continued monitoring of blood pressures. Will send cath UA and C&S. reviewed plan with patient, she verbalizes understanding. All questions addressed. Patient states [facility]OC is on the way to care for infant. Dr. Rose aware of admission. - Patient Problems (1) Hypokalemia Onset Date: 06/16/18 Current Visit: Yes Status: Acute Plan to address problem: treated in ED, will recheck labs (2) headache Current Visit: Yes Status: Acute (3) Pre-eclampsia Current Visit: Yes Status: Acute Qualifiers: Trimester: unspecified trimester Qualified Code(s): O14.90 - Unspecified pre-eclampsia, unspecified trimester (4) UTI (urinary tract infection) Current Visit: Yes Status: Acute Qualifiers: Encounter type: initial encounter
[2018-06-16] MEDS: LACTATED RINGERS 1,000 ML IV SCH (23:46)
[2018-06-16] MEDS: MAGNESIUM SULFATE 40GM/1000ML 40 GM/1,000 ML BAG IV SCH (23:46)
[2018-06-16 23:47] LABS: Bilirubin,Urine NEG (Negative); Blood,Urine SM (Negative); Color,Urine Yellow (Yellow); Hyaline Casts,Urine 1 /LPF; Mucus,Urine 1+ /HPF; Protein,Urine <15 mg/dL mg/dL (Negative); Urobilinogen,Urine < 2.0 mg/dL (<2.0)
[2018-06-17] MEDS: MOTRIN PO PRN ×3 (01:23→20:20)
--- NOTE | 2018-06-17 09:14 | Progress Note ---
Subjective Date of service: 06/17/18 (pt c/o being tired) Principal diagnosis: PP ESPARZA, elevated blood pressure Interval history: Pt trying to rest NB in room with pt. MGSO4 continues @ 2gm/hr until 2345 tonight. BP 115-117/80-60 Pt states she has ESPARZA but improved since admission Denies blurred vision, chest pain. Pt stable PP ESPARZA and elevated BP on admission P: continue POC. Poss d/c tomorrow. Objective - Constitutional Vitals: Vital Signs - 12hr 06/16/18 06/16/18 06/16/18 21:31 22:01 22:31 Temperature Pulse Rate Respiratory 16 Rate Blood Pressure 148/87 126/64 Blood Pressure 145/78 [Right] O2 Sat by Pulse 98 Oximetry 06/16/18 06/16/18 06/16/18 22:46 23:26 23:30 Temperature 98.4 F Pulse Rate 76 72 74 Respiratory 16 21 18 Rate Blood Pressure 130/87 131/82 Blood Pressure [Right] O2 Sat by Pulse 99 100 Oximetry 06/16/18 06/16/18 06/17/18 23:40 23:50 00:00 Temperature Pulse Rate 61 60 69 Respiratory 25 H 21 15 Rate Blood Pressure 136/85 136/85 124/76 Blood Pressure [Right] O2 Sat by Pulse 98 99 99 Oximetry 06/17/18 06/17/18 06/17/18 00:10 00:20 01:46 Temperature 97.6 F Pulse Rate 63 64 78 Respiratory 11 L 21 16 Rate Blood Pressure 124/76 124/76 115/73 Blood Pressure [Right] O2 Sat by Pulse 99 99 98 Oximetry 06/17/18 06/17/18 06/17/18 01:50 03:40 05:48 Temperature 98.4 F 98.2 F Pulse Rate 80 82 Respiratory 14 16 Rate Blood Pressure 113/67 113/85 Blood Pressure [Right] O2 Sat by Pulse 100 97 98 Oximetry 06/17/18 07:23 Temperature 98.3 F Pulse Rate 71 Respiratory 16 Rate Blood Pressure 117/72 Blood Pressure [Right] O2 Sat by Pulse 100 Oximetry - Labs CBC & Chem 7: 06/16/18 18:01 06/16/18 18:01 Labs: Abnormal lab results 06/16/18 06/16/18 06/16/18 Range/Units 18:01 18:01 19:23 WBC 3.4 L (4.5-11.0) K/mm3 RDW 12.7 L (13.2-15.2) % Lymph % (Auto) 42.0 H (13.4-35.0) % [place] % (Auto) 12.6 H (0.0-7.3) % Seg Neutrophils # 1.4 L (1.8-7.7) K/mm3 Potassium 2.9 L* (3.6-5.0) mmol/L Glucose 107 H (65-100) mg/dL Magnesium (1.7-2.3) mg/dL Albumin 3.8 L (3.9-5) g/dL Urine WBC (Auto) 16.0 H (0.0-6.0) /HPF 06/17/18 Range/Units 05:04 WBC (4.5-11.0) K/mm3 RDW (13.2-15.2) % Lymph % (Auto) (13.4-35.0) % [place] % (Auto) (0.0-7.3) % Seg Neutrophils # (1.8-7.7) K/mm3 Potassium (3.6-5.0) mmol/L Glucose (65-100) mg/dL Magnesium 5.60 H (1.7-2.3) mg/dL Albumin (3.9-5) g/dL Urine WBC (Auto) (0.0-6.0) /HPF
[2018-06-17 10:46] LABS: Alanine Aminotransferase 16 units/L (7-56); Albumin 3.7 g/dL (3.9-5); BUN/Creatinine Ratio 8; Blood Urea Nitrogen 5 mg/dL (7-17); Calcium 7.4 mg/dL (8.4-10.2); Hemolysis Index 12
[2018-06-17] MEDS ORDERED: TYLENOL PO PRN (14:16)
[2018-06-17] MEDS: LACTATED RINGERS 1,000 ML IV SCH (14:35)
[2018-06-17] MEDS ORDERED: NORMODYNE PO ONE (16:00)
--- NOTE | 2018-06-17 16:06 | Event Note ---
Date: 06/17/18 (BP elevated X 2 Will start Labetalol po) Labetalol 200mg given ABELINO Then will be BID made aware
[2018-06-17] MEDS: MAGNESIUM SULFATE 40GM/1000ML 40 GM/1,000 ML BAG IV SCH (20:21)
[2018-06-17] MEDS: NORMODYNE PO SCH (21:18)
[2018-06-18] MEDS: MOTRIN PO PRN (08:00)
--- NOTE | 2018-06-18 08:09 | Discharge Summary ---
Providers - Providers Date of Admission: 06/16/18 21:31 Date of discharge: 06/18/18 (pt desires d/c ) Attending physician: SOLIS MADDEN Primary care physician: TRAVELING AUDITOR Hospitalization Reason for admission: ESPARZA and elevated blood pressure Condition: Good Hospital course: MGSO4 X 24 hrs Started on labetalol 200mg BID Resolution of ESPARZA and stable BP Pt resting Baby sleeping in bed with pt. Mom states baby has his circ in the AM @ the office Instructed pt to make sure she has a BP check. BP 124/76 Doing well P: d/c today with instructions RX Labetalol 200mg po BID consulted Disposition: DC-01 TO HOME OR SELFCARE - Discharge Diagnoses (1) hypertension Status: Acute Comment: BP check in office Core Measure Documentation - Palliative Care Palliative Care/ Comfort Measures: Not Applicable - Core Measures Any of the following diagnoses?: none - VTE Discharge Requirements Deep Vein Thrombosis/Pulmonary Embolism Present on Admission: No Has pt received <5 days of overlap therapy or INR<2.0: No Anticoagulant overlap therapy prescribed at discharge: No Contraindication No Overlap Therapy order at DC: Not Indicated - Acute HI Discharge Requirements Aspirin at discharge: No Reason for no aspirin on DC: Medical contraindication AGATHA/ARB for LVSD if EF <40%: Not Applicable Reason for no AGATHA/ARB: Medical contraindication Beta romana at discharge: No Reason for no beta romana on DC: Medical contraindication Statin for LDL = or >100 mg/dl on DC: Not Applicable Reason for no statin on DC: Medical contraindication - Heart Failure Discharge Requirements AGATHA/ARB for LVSD if EF <40%: Not Applicable Reason for no AGATHA/ARB: Medical contraindication Beta romana at discharge: No Reason for no beta romana on DC: Medical contraindication - Stroke Discharge Requirements Statin for LDL = or >70 mg/dl on DC: Not Applicable Reason for no statin on DC: Not Indicated Anticoag for atrial fib/atrial flutter: Not Applicable Reason for no anticoag for AF/F on DC: Not Indicated Antithrombotic for ischemic stroke: No Reason for no antithrombotic on DC: Not Indicated Exam - Constitutional Vitals: Temp Pulse Resp BP Pulse Ox 98.7 F 80 18 118/73 96 06/18/18 07:32 06/18/18 07:32 06/18/18 08:00 06/18/18 07:32 06/18/18 07:32 General appearance: Present: no acute distress, well-nourished - EENT Eyes: Present: PERRL ENT: hearing intact, clear oral mucosa - Neck Neck: Present: supple, normal ROM - Respiratory Respiratory effort: normal Respiratory: bilateral: CTA - Cardiovascular Heart Sounds: Present: S1 & S2. Absent: rub, click - Extremities Extremities: pulses symmetrical, No edema Peripheral Pulses: within normal limits - Abdominal General gastrointestinal: Present: deferred Female genitourinary: Present: deferred - Rectal Rectal Exam: deferred - Integumentary Integumentary: Present: clear, warm, dry - Musculoskeletal Musculoskeletal: gait normal, strength equal bilaterally - Psychiatric Psychiatric: appropriate mood/affect, intact judgment & insight - Neurologic Neurologic: CNII-XII intact, moves all extremities Plan Activity: advance as tolerated Weight Bearing Status: Weight Bear as Tolerated Diet: low salt Special Instructions: no heavy lifting Follow up with: PRIMARY CARE,MD [Primary Care Provider] - 3-5 Days FLACA MARSHALL CNM [Advanced Practice Nurse] - 7 Days (Call [phone] with headache not relieved with Tylenol, blurred vision, chest pain. Have your blood pressure checked tomorrow when you bring your son in for circumcision. Make your follow up visit as instructed. Take medication as prescribed. Call with any concerns.) Prescriptions: Labetalol [Normodyne TAB] 200 mg PO BID #60 tablet
[2018-06-18] MEDS: NORMODYNE PO SCH (10:39)
[2018-06-18 11:58] VITALS: BP 126/83
== END 2018-06-18 14:40 | disposition home or self-care (01) | DRG 776 ==
LOC: ED 17:24 → OB 21:31
PROVIDERS: ADMIT Obstetrics & Gynecology; ATTEND Obstetrics & Gynecology
DX: O16.5 Unspecified maternal hypertension, complicating the puerperium (principal); O90.89 Other complications of the puerperium, not elsewhere classified; O14.90 Unspecified pre-eclampsia, unspecified trimester; E87.6 Hypokalemia; Z79.899 Other long term (current) drug therapy; O86.20 Urinary tract infection following delivery, unspecified; O12.10 Gestational proteinuria, unspecified trimester
CPT/HCPCS: 36415; 70450; 80053; 81001; 83735; 84550; 85025; J1200; J1885; J2765; J3475; J7120

== ENCOUNTER 2018-10-09 07:22 | Emergency (ER) | payer MEDICAID ==
[2018-10-09 07:38] VITALS: BP 118/72
[2018-10-09] MEDS ORDERED: XYLOCAINE 2% INFILTRATI ONE (08:17)
--- NOTE | 2018-10-09 08:17 | Emergency Department Report ---
Abscess Boil HPI - HPI Chief Complaint: Skin/Abscess/Foreign Body Stated Complaint: PAINFUL BOIL ON PRIVATE AREA Duration: 4 Days Location: Other (left labia majora) Severity: Moderate History: Yes Pain, No Fever, No Purulent Drainage, No Numbness, No Foreign Body, No Previous History, No Insect Bite HPI: This is a 28 year-old female who presents with an abscess to labia for 3-4 days. Patient reports pain is worse with walking and sitting. She has tried warm compresses and no improvement of symptoms. She denies past history of abscess. Past medical history of seizures. Last menstrual period 10/08/2018. Home Medications: Previous Rx's Medication Instructions Recorded Last Taken Type Promethazine [Phenergan TAB] 25 mg PO Q6HR PRN #15 tab 12/16/16 Unknown Rx Ibuprofen [Motrin] 600 mg PO Q8H PRN #30 tablet 06/01/17 06/16/18 Rx oxyCODONE /ACETAMINOPHEN [Percocet 1 tab PO Q6HR PRN #30 tablet 06/01/17 Unknown Rx 5/325] Ibuprofen [Motrin 800 MG tab] 800 mg PO Q8HR PRN #30 tablet 06/07/18 Unknown Rx Lidocain2.5%/Prilocai2.5% [Emla] 5 gm TP ONCE PRN #1 tube 06/07/18 Unknown Rx Labetalol [Normodyne TAB] 200 mg PO BID #60 tablet 06/18/18 Unknown Rx Ibuprofen [Motrin 800 MG tab] 800 mg PO Q8HR PRN #15 tablet 10/09/18 Unknown Rx Sulfamethoxazole/Trimethoprim 1 each PO BID #14 tablet 10/09/18 Unknown Rx [Bactrim DS TAB] Allergies/Adverse Reactions: Allergies Allergy/AdvReac Type Severity Reaction Status Date / Time No Known Allergies Allergy Unverified 08/29/13 12:26 ED Review of Systems ROS: Stated complaint: PAINFUL BOIL ON PRIVATE AREA Other details as noted in HPI Constitutional: denies: chills, fever Respiratory: denies: cough, shortness of breath, wheezing Cardiovascular: denies: chest pain, palpitations Gastrointestinal: denies: abdominal pain, nausea, diarrhea Genitourinary: denies: urgency, dysuria, discharge Skin: lesions (abscess to labia majora). denies: rash Neurological: denies: headache, weakness, paresthesias Psychiatric: denies: anxiety, depression ED Past Medical Hx - Past Medical History Previous Medical History?: Yes Hx Hypertension: No Hx Congestive Heart Failure: No Hx Diabetes: No Hx Deep Vein Thrombosis: No Hx Renal Disease: No Hx Sickle Cell Disease: No Hx Seizures: Yes (childhood 2-3yrs) Hx Asthma: No Hx COPD: No Hx HIV: No - Surgical History Past Surgical History?: No - Social History Smoking Status: Never Smoker Substance Use Type: None - Medications Home Medications: Home Medications Medication Instructions Recorded Confirmed Last Taken Type Promethazine [Phenergan TAB] 25 mg PO Q6HR PRN #15 tab 12/16/16 06/17/18 Unknown Rx Ibuprofen [Motrin] 600 mg PO Q8H PRN #30 tablet 06/01/17 06/17/18 06/16/18 Rx oxyCODONE /ACETAMINOPHEN [Percocet 1 tab PO Q6HR PRN #30 tablet 06/01/17 06/17/18 Unknown Rx 5/325] Ibuprofen [Motrin 800 MG tab] 800 mg PO Q8HR PRN #30 tablet 06/07/18 06/17/18 Unknown Rx Lidocain2.5%/Prilocai2.5% [Emla] 5 gm TP ONCE PRN #1 tube 06/07/18 06/17/18 Unknown Rx Labetalol [Normodyne TAB] 200 mg PO BID #60 tablet 06/18/18 Unknown Rx Ibuprofen [Motrin 800 MG tab] 800 mg PO Q8HR PRN #15 tablet 10/09/18 Unknown Rx Sulfamethoxazole/Trimethoprim 1 each PO BID #14 tablet 10/09/18 Unknown Rx [Bactrim DS TAB] ED Abscess Boil Physical Exam - Exam General: Vital signs noted. No distress. Alert and acting appropriately. Size: 2 cm Exam: Yes Tenderness, Yes Fluctuance, Yes Normal Neurologic Exam, Yes Normal Circulation, No Surrounding Cellulites/Erythema, No Lymphangitis, No Crepitation, No Heart Murmur Exam: 2 cm nodule to left labia majora, fluctuant, and tenderness. No surrounding cellulitis or drainage. I & D Note - I & D Note I & D Note: The area was prepared and draped in the usual, sterile manner. The site was anesthetized with 2% lidocaine without epinephrine. A linear incision along the local skin lines was made and the purulent material expressed. The abcess was explored thoroughly and sequestered pockets were opened. Bleeding was minimal. Packing: idodoform. Followup: The patient tolerated the procedure well without complications. Standard post-procedure care was explained and return precautions are given. ED Course Vital Signs 10/09/18 07:35 Temperature 98.6 F Pulse Rate 83 Respiratory 18 Rate Blood Pressure 118/72 O2 Sat by Pulse 98 Oximetry Critical care attestation.: If time is entered above; I have spent that time in minutes in the direct care of this critically ill patient, excluding procedure time. ED Medical Decision Making - Medical Decision Making This is a 28 y.o. female that presents with a painful abscess to left labia ma jora for 4 days. No history of prior abscess. Patient is stable and examined by me. Physical assessment of 2 cm fluctuance nodule to left labia majora, tender. No acute signs of distress noted. I&D refer to note. Discussed plan to start bactrim DS and ibuprofen with patient. Educated patient on follow up plan to have packing removed and wound reassessed in 2-3 days. Patient agrees to ED plan of care. Discharged home and follow up with PCP in 2-3 days. ED Disposition Clinical Impression: Bartholin's gland abscess Disposition: TO HOME OR SELFCARE Is pt being admited?: No Does the pt Need Aspirin: No Condition: Stable Instructions: Incision and Drainage (ED), Bartholin Cyst (ED) Additional Instructions: Keep packing in place for 2-3 days. Return to ER or f/u with PCP to have packing removed and wound reassessed. Complete full round of bactrim DS antibiotic as prescribed. Follow up with PCP or ER in 2-3 days. Return to ER if foul smelling discharge, swelling, or severe pain to wound. Prescriptions: Ibuprofen [Motrin 800 MG tab] 800 mg PO Q8HR PRN #15 tablet PRN Reason: Pain , Severe (7-10) Sulfamethoxazole/Trimethoprim [Bactrim DS TAB] 1 each PO BID #14 tablet Referrals: SANTIAGO LORA MD [Primary Care Provider] - 3-5 Days [facility] [Outside] - 3-5 Days [facility] [Outside] - 3-5 Days Forms: Work/School Release Form(ED) Time of Disposition: 10:25
== END 2018-10-09 10:35 | disposition home or self-care (01) ==
LOC: ED 07:22
DX: N75.1 Abscess of Bartholin's gland (principal); Z79.899 Other long term (current) drug therapy
CPT/HCPCS: 99282

== ENCOUNTER 2018-10-12 10:12 | Emergency (ER) | payer MEDICAID ==
[2018-10-12 10:19] VITALS: BP 112/65
--- NOTE | 2018-10-12 11:03 | Emergency Department Report ---
Suture/Staple Removal - [facility] Chief Complaint: Laceration/Recheck/Suture Stated Complaint: REMOVAL OF PACKAGE Time Seen by Provider: 10/12/18 10:28 When Sutures or Pateros Placed: 3 days Wound Location: left labia majora ED Review of Systems ROS: Stated complaint: REMOVAL OF PACKAGE Other details as noted in HPI Constitutional: denies: chills, fever Eyes: denies: eye pain, eye discharge, vision change ENT: denies: ear pain, throat pain Respiratory: denies: cough, shortness of breath, wheezing Cardiovascular: denies: chest pain, palpitations Endocrine: no symptoms reported Gastrointestinal: denies: abdominal pain, nausea, diarrhea Genitourinary: denies: urgency, dysuria, discharge Musculoskeletal: denies: back pain, joint swelling, arthralgia Skin: denies: rash, lesions Neurological: denies: headache, weakness, paresthesias Psychiatric: denies: anxiety, depression Hematological/Lymphatic: denies: easy bleeding, easy bruising ED Past Medical Hx - Past Medical History Previous Medical History?: Yes Hx Hypertension: No Hx Congestive Heart Failure: No Hx Diabetes: No Hx Deep Vein Thrombosis: No Hx Renal Disease: No Hx Sickle Cell Disease: No Hx Seizures: Yes (childhood 2-3yrs) Hx Asthma: No Hx COPD: No Hx HIV: No - Surgical History Past Surgical History?: No - Social History Smoking Status: Never Smoker Substance Use Type: None - Medications Home Medications: Home Medications Medication Instructions Recorded Confirmed Last Taken Type Promethazine [Phenergan TAB] 25 mg PO Q6HR PRN #15 tab 12/16/16 06/17/18 Unknown Rx Ibuprofen [Motrin] 600 mg PO Q8H PRN #30 tablet 06/01/17 06/17/18 06/16/18 Rx oxyCODONE /ACETAMINOPHEN [Percocet 1 tab PO Q6HR PRN #30 tablet 06/01/17 06/17/18 Unknown Rx 5/325] Ibuprofen [Motrin 800 MG tab] 800 mg PO Q8HR PRN #30 tablet 06/07/18 06/17/18 Unknown Rx Lidocain2.5%/Prilocai2.5% [Emla] 5 gm TP ONCE PRN #1 tube 06/07/18 06/17/18 Unknown Rx Labetalol [Normodyne TAB] 200 mg PO BID #60 tablet 06/18/18 Unknown Rx Ibuprofen [Motrin 800 MG tab] 800 mg PO Q8HR PRN #15 tablet 10/09/18 Unknown Rx Sulfamethoxazole/Trimethoprim 1 each PO BID #14 tablet 10/09/18 Unknown Rx [Bactrim DS TAB] Suture Removal Exam - Exam General: Vital signs noted. No distress. Alert and acting appropriately. Wound: No Pathologic Erythema, No Tenderness, No Drainage, No Pus, No Wound Dehiscence Other Systems: All other systems reviewed and are unremarkable. ED Course Vital Signs 10/12/18 10:16 Temperature 98.3 F Pulse Rate 72 Respiratory 16 Rate Blood Pressure 112/65 O2 Sat by Pulse 100 Oximetry - Reevaluation(s) Reevaluation #1: 10/12/18 11:01 Patient is speaking in full sentences with no signs of distress noted. ED Recheck MDM - Medical Decision Making This is a 28-year-old female that presents with abscess packing removal. She is stable and was examined by me. Upon exam, patient stated packing was removed yesterday accidental at home. No signs of wound dehiscence, drainage, or cellulitis. No abscess noted. No swelling. Patient was referred to Follow-up with a primary care doctor in 3-5 days or if symptoms worsen and continue return to emergency room as soon as possible. At time of discharge, the patient does not seem toxic or ill in appearance. No acute signs of distress noted. Patient agrees to discharge treatment plan of care. No further questions noted by the patient. Critical care attestation.: If time is entered above; I have spent that time in minutes in the direct care of this critically ill patient, excluding procedure time. ED Disposition Clinical Impression: Abscess packing removal Disposition: DC-01 TO HOME OR SELFCARE Is pt being admited?: No Does the pt Need Aspirin: No Condition: Stable Additional Instructions: Follow-up with a primary care doctor in 3-5 days or if symptoms worsen and continue return to emergency room as soon as possible. Continue taking antibiotics as prescribed to to you during your previous visit. Referrals: JEANINE PILLAI DO [Primary Care Provider] - 3-5 Days PRIMARY CAREMD [Referring] - 3-5 Days LISA TOM MD [Staff Physician] - 3-5 Days [facility] [Outside] - 3-5 Days Forms: Work/School Release Form(ED)
== END 2018-10-12 11:10 | disposition home or self-care (01) ==
LOC: ED 10:12
DX: Z48.01 Encounter for change or removal of surgical wound dressing (principal)

== ENCOUNTER 2018-12-12 19:21 | Emergency (ER) | payer MEDICAID ==
--- NOTE | 2018-12-12 19:45 | Emergency Department Report ---
Blank Doc - Documentation Documentation: 28 y o female presents with sharp stabbing pain x 2 weeks feels like gas but feels worse and radiates to flank also cc of marixa Ua, upt ACC evaluate
[2018-12-12 19:46] VITALS: BP 120/77
[2018-12-12 20:23] LABS: Bilirubin,Urine NEG (Negative); Blood,Urine NEG (Negative); Color,Urine Yellow (Yellow); Mucus,Urine 3+ /HPF; Protein,Urine <15 mg/dL mg/dL (Negative)
[2018-12-12 20:31] LABS: HCG Qualitative,Urine Negative (Negative)
== END 2018-12-12 21:58 | disposition left against medical advice (07) ==
LOC: ED 19:21
DX: R10.9 Unspecified abdominal pain (principal); Z53.21 Procedure and treatment not carried out due to patient leaving prior to being seen by health care provider
CPT/HCPCS: 81001; 81025

== ENCOUNTER 2018-12-13 04:50 | Emergency (ER) | payer MEDICAID ==
--- NOTE | 2018-12-13 07:05 | Emergency Department Report ---
ED General Adult HPI - General Chief complaint: Abdominal Pain Stated complaint: ABD PAIN AT LEAST 7 BOILS ON BODY Time Seen by Provider: 12/13/18 06:56 Source: patient Mode of arrival: Ambulatory Limitations: No Limitations - History of Present Illness Initial comments: Patient initially presented for abdominal pain dysuria frequency urgency patient denies any nausea vomiting no fever chills no vaginal discharge secondary complaint multiple abscesses has a history of hydradenitis patient refuses I&D is no fever no chills is a chronic problem for this patient Onset/Timin -: week(s) Location: upper extremity, lower extremity Radiation: non-radiation Severity scale (0 -10): 8 Quality: other (itching) Consistency: constant Improves with: none Worsens with: none Treatments Prior to Arrival: none - Related Data Previous Rx's Medication Instructions Recorded Last Taken Type Promethazine [Phenergan TAB] 25 mg PO Q6HR PRN #15 tab 12/16/16 Unknown Rx Ibuprofen [Motrin] 600 mg PO Q8H PRN #30 tablet 06/01/17 06/16/18 Rx oxyCODONE /ACETAMINOPHEN [Percocet 1 tab PO Q6HR PRN #30 tablet 06/01/17 Unknown Rx 5/325] Ibuprofen [Motrin 800 MG tab] 800 mg PO Q8HR PRN #30 tablet 06/07/18 Unknown Rx Lidocain2.5%/Prilocai2.5% [Emla] 5 gm TP ONCE PRN #1 tube 06/07/18 Unknown Rx Labetalol [Normodyne TAB] 200 mg PO BID #60 tablet 06/18/18 Unknown Rx Ibuprofen [Motrin 800 MG tab] 800 mg PO Q8HR PRN #15 tablet 10/09/18 Unknown Rx Sulfamethoxazole/Trimethoprim 1 each PO BID #14 tablet 10/09/18 Unknown Rx [Bactrim DS TAB] Ibuprofen 800 mg PO TID #30 tablet 12/13/18 Unknown Rx Sulfamethoxazole/Trimethoprim 1 each PO BID 14 Days #28 tablet 12/13/18 Unknown Rx [Bactrim DS TAB] Allergies Allergy/AdvReac Type Severity Reaction Status Date / Time No Known Allergies Allergy Verified 12/12/18 19:25 ED Review of Systems ROS: Stated complaint: ABD PAIN AT LEAST 7 BOILS ON BODY Other details as noted in HPI Constitutional: denies: chills, fever Eyes: denies: eye pain, eye discharge, vision change ENT: denies: ear pain, throat pain Respiratory: denies: cough, shortness of breath, wheezing Cardiovascular: as per HPI Endocrine: no symptoms reported Gastrointestinal: denies: abdominal pain, nausea, diarrhea Genitourinary: denies: urgency, dysuria, discharge Musculoskeletal: denies: back pain, joint swelling, arthralgia Skin: lesions (multiple small abscesses axillary and right thigh), pruritus. denies: rash Neurological: denies: headache, weakness, paresthesias Psychiatric: denies: anxiety, depression Hematological/Lymphatic: denies: easy bleeding, easy bruising ED Past Medical Hx - Past Medical History Previous Medical History?: Yes Hx Hypertension: No Hx Congestive Heart Failure: No Hx Diabetes: No Hx Deep Vein Thrombosis: No Hx Renal Disease: No Hx Sickle Cell Disease: No Hx Seizures: Yes (childhood 2-3yrs) Hx Asthma: No Hx COPD: No Hx HIV: No - Surgical History Past Surgical History?: No - Social History Smoking Status: Never Smoker Substance Use Type: None - Medications Home Medications: Home Medications Medication Instructions Recorded Confirmed Last Taken Type Promethazine [Phenergan TAB] 25 mg PO Q6HR PRN #15 tab 12/16/16 06/17/18 Unknown Rx Ibuprofen [Motrin] 600 mg PO Q8H PRN #30 tablet 06/01/17 06/17/18 06/16/18 Rx oxyCODONE /ACETAMINOPHEN [Percocet 1 tab PO Q6HR PRN #30 tablet 06/01/17 06/17/18 Unknown Rx 5/325] Ibuprofen [Motrin 800 MG tab] 800 mg PO Q8HR PRN #30 tablet 06/07/18 06/17/18 Unknown Rx Lidocain2.5%/Prilocai2.5% [Emla] 5 gm TP ONCE PRN #1 tube 06/07/18 06/17/18 Unknown Rx Labetalol [Normodyne TAB] 200 mg PO BID #60 tablet 06/18/18 Unknown Rx Ibuprofen [Motrin 800 MG tab] 800 mg PO Q8HR PRN #15 tablet 10/09/18 Unknown Rx Sulfamethoxazole/Trimethoprim 1 each PO BID #14 tablet 10/09/18 Unknown Rx [Bactrim DS TAB] Ibuprofen 800 mg PO TID #30 tablet 12/13/18 Unknown Rx Sulfamethoxazole/Trimethoprim 1 each PO BID 14 Days #28 tablet 12/13/18 Unknown Rx [Bactrim DS TAB] ED Physical Exam - General Limitations: No Limitations General appearance: alert, in no apparent distress - Head Head exam: Present: atraumatic, normocephalic - Eye Eye exam: Present: normal appearance - ENT ENT exam: Present: mucous membranes moist - Neck Neck exam: Present: normal inspection - Respiratory Respiratory exam: Present: normal lung sounds bilaterally. Absent: respiratory distress - Cardiovascular Cardiovascular Exam: Present: regular rate, normal rhythm. Absent: systolic murmur, diastolic murmur, rubs, gallop - GI/Abdominal GI/Abdominal exam: Present: soft, normal bowel sounds. Absent: tenderness, rebound - Rectal Rectal exam: Present: deferred - Extremities Exam Extremities exam: Present: normal inspection - Back Exam Back exam: Present: normal inspection, full ROM. Absent: tenderness, CVA tenderness (R), CVA tenderness (L), rash noted - Neurological Exam Neurological exam: Present: alert, oriented X3, CN II-XII intact, normal gait - Psychiatric Psychiatric exam: Present: normal affect, normal mood - Skin Skin exam: Present: warm, dry, intact, normal color. Absent: rash ED Medical Decision Making - Medical Decision Making Urine positive for UTI small leukocytes Y cells red cells bacteria multiple hydradenitis bilateral axillary plan Bactrim DS 14 days with PCP patient refers outside community clinic follow-up same in 2 days patient DC'd home in stable condition at this time Critical care attestation.: If time is entered above; I have spent that time in minutes in the direct care of this critically ill patient, excluding procedure time. ED Disposition Clinical Impression: Abscess UTI (urinary tract infection) Qualifiers: Urinary tract infection type: acute cystitis Hematuria presence: without hematuria Qualified Code(s): N30.00 - Acute cystitis without hematuria Disposition: DC-01 TO HOME OR SELFCARE Is pt being admited?: No Does the pt Need Aspirin: No Condition: Stable Instructions: Abdominal Pain (ED), Abscess (ED) Prescriptions: Sulfamethoxazole/Trimethoprim [Bactrim DS TAB] 1 each PO BID 14 Days #28 tablet Ibuprofen 800 mg PO TID #30 tablet Referrals: PRIMARY CARE, [Primary Care Provider] - 3-5 Days Forms: Work/School Release Form(ED) Time of Disposition: 07:09
== END 2018-12-13 07:20 | disposition home or self-care (01) ==
LOC: ED 04:50
DX: N30.00 Acute cystitis without hematuria (principal); L02.412 Cutaneous abscess of left axilla; L02.411 Cutaneous abscess of right axilla; L02.415 Cutaneous abscess of right lower limb
CPT/HCPCS: 99282

== ENCOUNTER 2019-07-12 10:25 | Emergency (ER) | payer MEDICAID ==
[2019-07-12] MEDS ORDERED: IBUPROFEN 800 MG TAB PO ONE (11:43)
--- NOTE | 2019-07-12 11:44 | Emergency Department Report ---
Minor Respiratory - HPI Chief Complaint: Upper Respiratory Infection Stated Complaint: FLU SYMPTOMS/CHEST PAIN Time Seen by Provider: 07/12/19 10:52 Duration: 3 Days Pain Location: Nose, Chest Severity: moderate Minor Respiratory: Yes Rhinorrhea, Yes Able to Tolerate Fluids, Yes Cough, Yes Sick Contacts (children), Yes Chest Pain, Yes Fever, No Sore Throat, No Ear Pain , No Hemoptysis, No Shortness of Breath Other History: This is a 29-year-old -[place] female who presents to the emergency room with cough, chest discomfort for 3 days. Patient states initially she had nausea and vomiting on Tuesday and Tuesday which is now resolved. She states that her children have been sick over the past 2 week when she thinks she caught something from them. She is currently taking cold and flu medication with minimal improvement of symptoms. She denies receiving a influenza vaccine. She is concerned of having influenza. She denies p alpitations, weakness, dizziness, sore throat, or ear pain. ED Review of Systems ROS: Stated complaint: FLU SYMPTOMS/CHEST PAIN Other details as noted in HPI Constitutional: chills. denies: fever ENT: congestion. denies: ear pain, throat pain Respiratory: cough. denies: shortness of breath, wheezing Cardiovascular: chest pain. denies: palpitations Gastrointestinal: denies: abdominal pain, nausea, diarrhea Musculoskeletal: denies: back pain, joint swelling, arthralgia, myalgia Skin: denies: rash, lesions Neurological: denies: headache, weakness, paresthesias Psychiatric: denies: anxiety, depression ED Past Medical Hx - Past Medical History Hx Hypertension: No Hx Congestive Heart Failure: No Hx Diabetes: No Hx Deep Vein Thrombosis: No Hx Renal Disease: No Hx Sickle Cell Disease: No Hx Seizures: Yes (childhood 2-3yrs) Hx Asthma: No Hx COPD: No Hx HIV: No - Social History Smoking Status: Never Smoker Substance Use Type: None - Medications Home Medications: Home Medications Medication Instructions Recorded Confirmed Last Taken Type Promethazine [Phenergan TAB] 25 mg PO Q6HR PRN #15 tab 12/16/16 06/17/18 Unknown Rx Ibuprofen [Motrin] 600 mg PO Q8H PRN #30 tablet 06/01/17 06/17/18 06/16/18 Rx oxyCODONE /ACETAMINOPHEN [Percocet 1 tab PO Q6HR PRN #30 tablet 06/01/17 06/17/18 Unknown Rx 5/325] Ibuprofen [Motrin 800 MG tab] 800 mg PO Q8HR PRN #30 tablet 06/07/18 06/17/18 Unknown Rx Lidocain2.5%/Prilocai2.5% [Emla] 5 gm TP ONCE PRN #1 tube 06/07/18 06/17/18 Unknown Rx Labetalol [Labetalol 200mg TAB] 200 mg PO BID #60 tablet 06/18/18 Unknown Rx Ibuprofen [Motrin 800 MG tab] 800 mg PO Q8HR PRN #15 tablet 10/09/18 Unknown Rx Sulfamethoxazole/Trimethoprim 1 each PO BID #14 tablet 10/09/18 Unknown Rx [Bactrim DS TAB] Ibuprofen [Ibuprofen 800] 800 mg PO TID #30 tablet 12/13/18 Unknown Rx Sulfamethoxazole/Trimethoprim 1 each PO BID 14 Days #28 tablet 12/13/18 Unknown Rx [Bactrim DS TAB] Benzonatate [Tessalon Perles] 100 mg PO Q8HR PRN #30 capsule 07/12/19 Unknown Rx Fluticasone [Flonase] 1 spray NS QDAY #1 bottle 07/12/19 Unknown Rx Minor Respiratory Exam - Exam General: Vital signs noted. No distress. Alert and acting appropriately. HEENT: Yes Pharyngeal Erythema (erythematous posterior pharynx, uvula midline, no peritonsillar swelling), Yes Moist Mucous Membranes, Yes Rhinorrhea (turbinates congested with clear discharge), No Pharyngeal Exudates, No Conjuc tival Injection, No Frontal Tenderness, No Maxillary Tenderness Ear: Neither TM Bulge, Neither TM Erythema, Neither EAC Pain, Neither EAC Discharge Neck: Yes Supple, No Adenopathy Lungs: Yes Good Air Exchange, Yes Cough, No Wheezes, No Ronchi, No Stridor, No Labored Respirations, No Retractions, No Use of Accessory Muscles, No Other Abnormal Lung Sounds Heart: Yes Regular, No Murmur Abdomen: Yes Normal Bowel Sounds, No Tenderness, No Peritoneal Signs Skin: No Rash, No Edema Neurologic: Alert and oriented, no deficits. Musculoskeletal: Unremarkable. ED Course Vital Signs 07/12/19 10:27 Temperature 98.6 F Pulse Rate 102 H Respiratory 20 Rate Blood Pressure 118/77 O2 Sat by Pulse 100 Oximetry ED Medical Decision Making - Radiology Data Radiology results: report reviewed CHEST 2 VIEWS INDICATION / CLINICAL INFORMATION: chest pain, cough. COMPARISON: 08/22/12 FINDINGS: SUPPORT DEVICES: None. HEART / MEDIASTINUM: No significant abnormality. LUNGS / PLEURA: No significant pulmonary or pleural abnormality. No pneumothorax. ADDITIONAL FINDINGS: No significant additional findings. IMPRESSION: 1. No acute findings. No change. - Medical Decision Making Patient examined by me and stable. No distress noted. Vitals normal. Chest xray has been obtained and dictated by radiologist. Patient notified of x-ray results with no acute findings. Reviewed results with patient. Start benzonatate, flonase, continue [id number] cold and flu medications. Discharged home stable. Follow up with Primary Care Provider in 2-3 days. Critical care attestation.: If time is entered above; I have spent that time in minutes in the direct care of this critically ill patient, excluding procedure time. ED Disposition Clinical Impression: Cough in adult Upper respiratory infection Qualifiers: URI type: acute nasopharyngitis (common cold) Qualified Code(s): J00 - Acute nasopharyngitis [common cold] Disposition: TO HOME OR SELFCARE Is pt being admited?: No Condition: Stable Instructions: Upper Respiratory Infection (ED), Cold Symptoms (ED) Additional Instructions: Increase fluid intake and rest. Wash hands frequently. Continue taking Tylenol or ibuprofen to control fever. F/U with Primary Care Provider. Return to ER if fever, SOB, or difficulty breathing after 48 hours of supportive care. Prescriptions: Fluticasone [Flonase] 1 spray NS QDAY #1 bottle Benzonatate [Tessalon Perles] 100 mg PO Q8HR PRN #30 capsule PRN Reason: Cough Referrals: [facility] [Outside] - 3-5 Days [facility] [Outside] - 3-5 Days [facility] [Outside] - 3-5 Days Forms: Work/School Release Form(ED) Time of Disposition: 13:07
--- NOTE | 2019-07-12 12:33 | XRay Report ---
CHEST 2 VIEWS INDICATION / CLINICAL INFORMATION: chest pain, cough. COMPARISON: 08/22/12 FINDINGS: SUPPORT DEVICES: None. HEART / MEDIASTINUM: No significant abnormality. LUNGS / PLEURA: No significant pulmonary or pleural abnormality. No pneumothorax. ADDITIONAL FINDINGS: No significant additional findings. IMPRESSION: 1. No acute findings. No change. Signer Name: Mark He MD Signed: 07/12/2019 12:28 PM Workstation Name: [id number]
[2019-07-12 13:21] VITALS: BP 126/88
== END 2019-07-12 13:24 | disposition home or self-care (01) ==
LOC: ED 10:25
DX: J06.9 Acute upper respiratory infection, unspecified (principal); Z79.899 Other long term (current) drug therapy
CPT/HCPCS: 71046

== ENCOUNTER 2019-09-04 03:49 | Emergency (ER) | payer MEDICAID ==
[2019-09-04] MEDS ORDERED: IBUPROFEN 600 MG TAB PO ONE (04:51)
[2019-09-04 08:25] VITALS: BP 118/74
--- NOTE | 2019-09-04 08:34 | Emergency Department Report ---
ED General Adult HPI - General Chief complaint: Nausea/Vomiting/Diarrhea Stated complaint: CP/VOMITING/BODY PAIN Time Seen by Provider: 09/04/19 08:15 Source: patient Mode of arrival: Ambulatory Limitations: No Limitations - History of Present Illness Initial comments: Patient is a 29-year-old female who presents to emergency room with complaints of flulike symptoms that began yesterday. She has associated generalized body aches, fever, chills, nausea, vomiting, cough. She denies any diarrhea, ear pain, sore throat, abdominal pain, urinary symptoms, any other symptoms. She denies any past medical history or allergies medications. She states that she is currently on her menstrual cycle. she states she has had a sick contact with her son who has cold symptoms and fever. Severity scale (0 -10): 0 - Related Data Previous Rx's Medication Instructions Recorded Last Taken Type Promethazine [Phenergan TAB] 25 mg PO Q6HR PRN #15 tab 12/16/16 Unknown Rx Ibuprofen [Motrin] 600 mg PO Q8H PRN #30 tablet 06/01/17 06/16/18 Rx oxyCODONE /ACETAMINOPHEN [Percocet 1 tab PO Q6HR PRN #30 tablet 06/01/17 Unknown Rx 5/325] Ibuprofen [Motrin 800 MG tab] 800 mg PO Q8HR PRN #30 tablet 06/07/18 Unknown Rx Lidocain2.5%/Prilocai2.5% [Emla] 5 gm TP ONCE PRN #1 tube 06/07/18 Unknown Rx labetaloL [Labetalol 200mg TAB] 200 mg PO BID #60 tablet 06/18/18 Unknown Rx Ibuprofen [Motrin 800 MG tab] 800 mg PO Q8HR PRN #15 tablet 10/09/18 Unknown Rx Sulfamethoxazole/Trimethoprim 1 each PO BID #14 tablet 10/09/18 Unknown Rx [Bactrim DS TAB] Ibuprofen [Ibuprofen 800] 800 mg PO TID #30 tablet 12/13/18 Unknown Rx Sulfamethoxazole/Trimethoprim 1 each PO BID 14 Days #28 tablet 12/13/18 Unknown Rx [Bactrim DS TAB] Benzonatate [Tessalon Perles] 100 mg PO Q8HR PRN #30 capsule 07/12/19 Unknown Rx Fluticasone [Flonase] 1 spray NS QDAY #1 bottle 07/12/19 Unknown Rx Ondansetron [Zofran Odt] 4 mg PO Q8HR PRN #10 tab.rapdis 09/04/19 Unknown Rx Oseltamivir [Tamiflu] 75 mg PO BID 5 Days #10 cap 09/04/19 Unknown Rx Allergies Allergy/AdvReac Type Severity Reaction Status Date / Time No Known Allergies Allergy Verified 07/12/19 10:27 ED Review of Systems ROS: Stated complaint: CP/VOMITING/BODY PAIN Other details as noted in HPI Comment: All other systems reviewed and negative ED Past Medical Hx - Past Medical History Hx Hypertension: No Hx Congestive Heart Failure: No Hx Diabetes: No Hx Deep Vein Thrombosis: No Hx Renal Disease: No Hx Sickle Cell Disease: No Hx Seizures: Yes (childhood 2-3yrs) Hx Asthma: No Hx COPD: No Hx HIV: No - Social History Smoking Status: Never Smoker Substance Use Type: None - Medications Home Medications: Home Medications Medication Instructions Recorded Confirmed Last Taken Type Promethazine [Phenergan TAB] 25 mg PO Q6HR PRN #15 tab 12/16/16 06/17/18 Unknown Rx Ibuprofen [Motrin] 600 mg PO Q8H PRN #30 tablet 06/01/17 06/17/18 06/16/18 Rx oxyCODONE /ACETAMINOPHEN [Percocet 1 tab PO Q6HR PRN #30 tablet 06/01/17 06/17/18 Unknown Rx 5/325] Ibuprofen [Motrin 800 MG tab] 800 mg PO Q8HR PRN #30 tablet 06/07/18 06/17/18 Unknown Rx Lidocain2.5%/Prilocai2.5% [Emla] 5 gm TP ONCE PRN #1 tube 06/07/18 06/17/18 Unknown Rx labetaloL [Labetalol 200mg TAB] 200 mg PO BID #60 tablet 06/18/18 Unknown Rx Ibuprofen [Motrin 800 MG tab] 800 mg PO Q8HR PRN #15 tablet 10/09/18 Unknown Rx Sulfamethoxazole/Trimethoprim 1 each PO BID #14 tablet 10/09/18 Unknown Rx [Bactrim DS TAB] Ibuprofen [Ibuprofen 800] 800 mg PO TID #30 tablet 12/13/18 Unknown Rx Sulfamethoxazole/Trimethoprim 1 each PO BID 14 Days #28 tablet 12/13/18 Unknown Rx [Bactrim DS TAB] Benzonatate [Tessalon Perles] 100 mg PO Q8HR PRN #30 capsule 07/12/19 Unknown Rx Fluticasone [Flonase] 1 spray NS QDAY #1 bottle 07/12/19 Unknown Rx Ondansetron [Zofran Odt] 4 mg PO Q8HR PRN #10 tab.rapdis 09/04/19 Unknown Rx Oseltamivir [Tamiflu] 75 mg PO BID 5 Days #10 cap 09/04/19 Unknown Rx ED Physical Exam - General Limitations: No Limitations General appearance: alert, in no apparent distress - Head Head exam: Present: atraumatic, normocephalic - Eye Eye exam: Present: normal appearance - ENT ENT exam: Present: mucous membranes moist - Respiratory Respiratory exam: Present: normal lung sounds bilaterally. Absent: respiratory distress, wheezes, rales, rhonchi, stridor, chest wall tenderness, accessory muscle use, decreased breath sounds, prolonged expiratory - Cardiovascular Cardiovascular Exam: Present: regular rate, normal rhythm, normal heart sounds. Absent: systolic murmur, diastolic murmur, rubs, gallop - GI/Abdominal GI/Abdominal exam: Present: soft, normal bowel sounds. Absent: distended, tenderness, guarding, rebound, rigid - Neurological Exam Neurological exam: Present: alert, oriented X3 - Psychiatric Psychiatric exam: Present: normal affect, normal mood - Skin Skin exam: Present: warm, dry, intact ED Course Vital Signs 09/04/19 09/04/19 09/04/19 04:04 07:55 08:25 Temperature 100.8 F H 99.4 F 98.1 F Pulse Rate 98 H 79 71 Respiratory 18 20 18 Rate Blood Pressure 133/78 Blood Pressure 114/56 118/74 [Right] O2 Sat by Pulse 100 99 100 Oximetry ED Medical Decision Making - Medical Decision Making Patient is a 29-year-old female who presents to emergency room with complaints of flulike symptoms that began yesterday. She has associated generalized body aches, fever, chills, nausea, vomiting, cough. She denies any diarrhea, ear pain, sore throat, abdominal pain, urinary symptoms, any other symptoms. She denies any past medical history or allergies medications. She states that she is currently on her menstrual cycle. Initial vitals with elevated temperature and heart rate which improved to normal upon ibuprofen administration. Patient has clinical signs and symptoms of influenza patient is within the 48-hour range for Tamiflu. Will give patient a prescription for Tamiflu. Discussed with the patient's the importance of supportive care and symptomatic treatment. pt also given prescription for zofran for nausea/vomiting. Advised patient to please take medication as prescribed. Increase her fluid intake over the next several days. Get plenty of rest. May take Tylenol or ibuprofen for fever or body aches. May take [id number] cough medication for cough. Follow up with a primary care doctor in the next 2-3 days for reexamination. Return to the emergency room immediately for any new or worsening symptoms. - Differential Diagnosis URI, PNA, bronchitis, influenza, viral syndrome, gastroenteritis Critical care attestation.: If time is entered above; I have spent that time in minutes in the direct care of this critically ill patient, excluding procedure time. ED Disposition Clinical Impression: Influenza Disposition: DC-01 TO HOME OR SELFCARE Is pt being admited?: No Does the pt Need Aspirin: No Condition: Stable Instructions: Influenza (ED) Additional Instructions: please take medication as prescribed. Increase her fluid intake over the next several days. Get plenty of rest. May take Tylenol or ibuprofen for fever or body aches. May take [id number] cough medication for cough. Follow up with a primary care doctor in the next 2-3 days for reexamination. Return to the emergency room immediately for any new or worsening symptoms. Prescriptions: Oseltamivir [Tamiflu] 75 mg PO BID 5 Days #10 cap Ondansetron [Zofran Odt] 4 mg PO Q8HR PRN #10 tab.rapdis PRN Reason: Nausea And Vomiting Referrals: PRIMARY CARE, [Primary Care Provider] - 2-3 Days Forms: Work/School Release Form(ED) Time of Disposition: 08:34 Print Language: ESTONIAN
== END 2019-09-04 08:49 | disposition home or self-care (01) ==
LOC: ED 03:49
DX: J11.1 Influenza due to unidentified influenza virus with other respiratory manifestations (principal); G40.909 Epilepsy, unspecified, not intractable, without status epilepticus; Z79.1 Long term (current) use of non-steroidal anti-inflammatories (NSAID); Z79.899 Other long term (current) drug therapy
CPT/HCPCS: 99282